=== PATIENT | female | born 1990 | race Caucasian/White ===

== ENCOUNTER 2018-01-26 08:31 | Outpatient (CLI) | payer MEDICAID ==
[~2018-01-26] VITALS: Ht 167.6 cm; Wt 91.2 kg
[~2018-01-26 08:31] MED LIST: ACE500 PO; ALB0.5 INH; ALBU8.5H IH; ALBU8.5H12 IH; AMIT-104 PO; AMOX-362; BACDS PO; CEP500 PO; CEPH500C24 PO; CHLO1CAP45 PO; CIT500PT PO; CITA-156 PO; CYCL10TA29 PO; DICY-42 PO; DOC100 PO; DOCU100T13 PO; DOXY-179 PO; FLU10 PO; GUAN1TAB PO; HYDR-3166 PO; HYDR-4309 PO; KET10 PO; LAM100 PO; LAMO100T56 PO; LIT150 PO; LOR5 PO; LOR5/325 PO; LORA-1455 PO; MEC125 PO; MED150I IM; METO-733 PO; NAP250 PO; NAPR500T75 PO; NITR-105 PO; OND4 PO; ONDA-2 PO; ONDA4TAB PO; ONDA4TAB9 PO; OXCA150T45 PO; PAN40 PO; PANT40TA65 PO; PER PO; PRED20TA6 PO; PRO25 PO; PROC-5 PO; PROC25SU3; PROM-110; PROM-110 PO; PROM12.556 PO; PROM25SU9 RC; RANI150C14 PO; RISP0.2563; RISP0.2563 PO; SUCR1TAB PO; TRA50 PO; TRAM-420 PO; TRAZ-133 PO; [UNRECOGNIZED DRUG - CODE] PO; [UNRECOGNIZED DRUG - CODE] PO
[2018-01-26 09:00] VITALS: BP 121/76; BMI 32.4
[2018-01-26 09:50] LABS: PLATELET COUNT, AUTOMATED 214 K/uL (150-450)
[2018-01-26] MEDS ORDERED: PREN-127 PO (10:03)
[2018-01-26] MEDS ORDERED: PANT40SU3 PO (10:03)
[2018-01-26] MEDS ORDERED: FOLI0.4T56 PO (10:03)
--- NOTE | 2018-01-26 10:15 | History & Physical ---
History of Present Illness Age of Patient: 27 : 5 Para or TPAL: 1 EDC per LMP: Feb 23, 2018 Estimated Gestational Age: 36 Chief Complaint right back/rib pain History of Present Illness Presents at 36 weeks with c/o pain in upper right back and in ribs. She has a history of having a rib fracture there and it feel similar. Baseline aching with sharp exacerbations with movement or cough. Denies SOB although she does have mild asthma and doesn't take any regular medication for this. She does have a rescue inhaler. Denies fever, chills or GI complaints. Denies actual contractions or obstetrical complaints. She does have a lot of stress due to social issues and the pain is worse with these. She has bipolar and takes Lamictal for this. She also recently started Protonix for reflux. Past Medical, Surgical, Family and Obstetric Histories reviewed. Please see ACOG chart. History Allergies: Coded Allergies: latex (Verified Allergy, Intermediate, RASH, 08/23/17) Med Rec Home Meds Reported Medications Vits W-Ca,Fe,Fa(<1MG) ( VITAMINS) 1 Each Tablet, 1 EACH PO DAILY, TAB 01/26/18 Folic Acid (FOLIC ACID) 0.4 Mg Tablet, 0.4 MG PO DAILY 01/26/18 Pantoprazole Sodium (PROTONIX) 40 Mg Granpkt.dr, 40 MG PO QDAY, PACK 01/26/18 Lamotrigine (LAMICTAL) 100 Mg Tablet, 100 MG PO QHS 06/13/15 Discontinued Scripts Promethazine Hcl (PROMETHAZINE HCL) 25 Mg Supp.rect, 25 MG RC Q8H Y for NAUSEA/ VOMITING, #12 SUPP.RECT You may take oral or suppository medication three times a day. Prov:ORLANDO MCKEON [employer] INSTALLER 08/23/17 Promethazine Hcl (PROMETHAZINE HCL) 25 Mg Tablet, 25 MG PO Q8H Y for NAUSEA/ VOMITING, #12 TAB Prov:OR[place]O MCKEON [facility] 08/23/17 Review of Systems All Systems Reviewed/Normal: Yes, Except as Noted Other as per HPI Exam General Exam Vital Signs Vital Signs Date Time Temp Pulse Resp B/P (MAP) Pulse Ox O2 Delivery O2 Flow Rate FiO2 01/26/18 09:00 97.9 80 15 121/76 (91) 95 Room Air General Apperance: Alert/Awake/No Acute Distress Neuro: No Gross deficits Eyes: Normal Extraocular Movement & Vison ENT: Normal Cardiovascular: Regular Rate and Rhythm Respiratory: No Respiratory Distress, Clear to Auscultation Abdomen: Soft, Non-Tender, Non-Distended, Gravid - Non-Tender Musculoskeletal: Other (right rib pain with palpation and flexion of rib cage) Extremities: No Cyanosis,Clubbing or Edema Integumentary: Skin Intact without Lesions or Rash Psychological: Alert & Oriented X3, Appropriate Mood & Affect Fetus Feeling Movement?: Yes Heart Tone Variabilty: Moderate FHT Accelerations: 15X15 FHT Category: I Medical Decision Making Data Points Result Diagram: 01/26/18 0945 Hematology Test 01/26/18 00:00 01/26/18 09:45 Urine Color Yellow Urine Clarity Slightly-cloudy Urine pH 6.0 pH (4.8-9.5) Urine Specific [place] 1.015 Urine Protein Negative mg/dL (NEGATIVE) Urine Glucose (UA) Negative mg/dL (NEGATIVE) Urine Ketones Negative mg/dL (NEGATIVE) Urine Blood Negative (NEGATIVE) Urine Nitrite Negative (NEGATIVE) Urine Bilirubin Negative (NEGATIVE) Urine Urobilinogen Negative mg/dL (0.2-1.9) Urine Leukocyte Esterase Trace (NEGATIVE) Urine RBC None /HPF (0-2/HPF) Urine WBC 1 /HPF (0-5/HPF) Urine Squamous Epithelial Cells Many /LPF (</=FEW) Urine Bacteria Few /HPF (NONE-FEW) Urine Mucus None /HPF (NONE-FEW) Red Blood Count 4.61 M/uL (4.17-5.56) Mean Corpuscular Volume 89.1 fL (80.0-96.0) Mean Corpuscular Hemoglobin 30.5 pg (26.0-33.0) Mean Corpuscular Hemoglobin Concent 34.2 g/dL (32.0-36.0) Red Cell Distribution Width 13.3 % (11.5-14.5) Mean Platelet Volume 7.7 fL (7.2-11.1) Neutrophils (%) (Auto) 71.5 % (39.4-72.5) Lymphocytes (%) (Auto) 22.2 % (17.6-49.6) Monocytes (%) (Auto) 4.5 % (4.1-12.4) Eosinophils (%) (Auto) 0.6 % (0.4-6.7) Basophils (%) (Auto) 1.2 % (0.3-1.4) Nucleated RBC Relative Count (auto) 0.2 /100WBC Neutrophils # (Auto) 8.5 K/uL (2.0-7.4) Lymphocytes # (Auto) 2.6 K/uL (1.3-3.6) Monocytes # (Auto) 0.5 K/uL (0.3-1.0) Eosinophils # (Auto) 0.1 K/uL (0.0-0.5) Basophils # (Auto) 0.1 K/uL (0.0-0.1) Nucleated RBC Absolute Count (auto) 0.03 K/uL Chemistry Test 01/26/18 00:00 01/26/18 09:45 Urine Color Yellow Urine Clarity Slightly-cloudy Urine pH 6.0 pH (4.8-9.5) Urine Specific [place] 1.015 Urine Protein Negative mg/dL (NEGATIVE) Urine Glucose (UA) Negative mg/dL (NEGATIVE) Urine Ketones Negative mg/dL (NEGATIVE) Urine Blood Negative (NEGATIVE) Urine Nitrite Negative (NEGATIVE) Urine Bilirubin Negative (NEGATIVE) Urine Urobilinogen Negative mg/dL (0.2-1.9) Urine Leukocyte Esterase Trace (NEGATIVE) Urine RBC None /HPF (0-2/HPF) Urine WBC 1 /HPF (0-5/HPF) Urine Squamous Epithelial Cells Many /LPF (</=FEW) Urine Bacteria Few /HPF (NONE-FEW) Urine Mucus None /HPF (NONE-FEW) White Blood Count 11.8 k/uL (4.5-11.0) Red Blood Count 4.61 M/uL (4.17-5.56) Hemoglobin 14.1 g/dL (12.0-16.0) Hematocrit 41.0 % (34.0-47.0) Mean Corpuscular Volume 89.1 fL (80.0-96.0) Mean Corpuscular Hemoglobin 30.5 pg (26.0-33.0) Mean Corpuscular Hemoglobin Concent 34.2 g/dL (32.0-36.0) Red Cell Distribution Width 13.3 % (11.5-14.5) Platelet Count 214 K/uL (150-450) Mean Platelet Volume 7.7 fL (7.2-11.1) Neutrophils (%) (Auto) 71.5 % (39.4-72.5) Lymphocytes (%) (Auto) 22.2 % (17.6-49.6) Monocytes (%) (Auto) 4.5 % (4.1-12.4) Eosinophils (%) (Auto) 0.6 % (0.4-6.7) Basophils (%) (Auto) 1.2 % (0.3-1.4) Nucleated RBC Relative Count (auto) 0.2 /100WBC Neutrophils # (Auto) 8.5 K/uL (2.0-7.4) Lymphocytes # (Auto) 2.6 K/uL (1.3-3.6) Monocytes # (Auto) 0.5 K/uL (0.3-1.0) Eosinophils # (Auto) 0.1 K/uL (0.0-0.5) Basophils # (Auto) 0.1 K/uL (0.0-0.1) Nucleated RBC Absolute Count (auto) 0.03 K/uL Urinalysis Test 01/26/18 00:00 Urine Color Yellow Urine Clarity Slightly-cloudy Urine pH 6.0 pH (4.8-9.5) Urine Specific [place] 1.015 Urine Protein Negative mg/dL (NEGATIVE) Urine Glucose (UA) Negative mg/dL (NEGATIVE) Urine Ketones Negative mg/dL (NEGATIVE) Urine Blood Negative (NEGATIVE) Urine Nitrite Negative (NEGATIVE) Urine Bilirubin Negative (NEGATIVE) Urine Urobilinogen Negative mg/dL (0.2-1.9) Urine Leukocyte Esterase Trace (NEGATIVE) Urine RBC None /HPF (0-2/HPF) Urine WBC 1 /HPF (0-5/HPF) Urine Squamous Epithelial Cells Many /LPF (</=FEW) Urine Bacteria Few /HPF (NONE-FEW) Urine Mucus None /HPF (NONE-FEW) VTE Prophylasis: Adult Deep Vein Thrombosis/Pulmonary: No Pharmacological Contraindicati: Pt at Low Risk for VTE Mechanical Contraindications: Pt at Low Risk for VTE 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 Checking CBC, CMP and urine. If normal, will discharge home with precautions. Should resolve with delivery. (2) , incidental Assessment & Plan: Reassuring tracing and no symptoms of labor. Has appt on Wednesday of next week. GWEN SINGH MD January 26, 2018 10:14
[2018-01-31 04:25] VITALS: Ht 167.6 cm; Wt 91.2 kg
== END 2018-01-26 12:52 | disposition home or self-care (01) ==
LOC: EDSTATUS 08:33 → L&D 08:35 → OB 08:35 → UNDOADMIN 08:35 → EDSTATUS 10:43 → UNDODISIN 12:52 → L&D 12:52
PROVIDERS: ATTEND Obstetrics & Gynecology
DX: O26.893 Other specified pregnancy related conditions, third trimester (principal); Z3A.36 36 weeks gestation of pregnancy
CPT/HCPCS: 36415; 59025; 81001; 85025; G0463; 82040; 82247; 82310; 82374; 82435; 82565; 82947; 84075; 84132; 84155; 84295; 84450; 84460; 84520; 99213

== ENCOUNTER → 2018-01-27 | Outpatient (CLI) | payer MEDICAID ==
[2018-01-26 09:00] VITALS: BMI 32.4
[~2018-01-27] MED LIST changes: +FOLI0.4T56 PO; +PANT40SU3 PO; +PREN-127 PO
--- NOTE | 2018-01-27 14:28 | RADIOLOGY IMAGING REPORT ---
FACILITY: [facility] [place] PATIENT NAME: Lucia Mena : 1990 MR: [id number] V: [id number] EXAM DATE: ORDERING PHYSICIAN: MADHAVI TROTTER TECHNOLOGIST: Location: [facility] [place] Patient: Lucia Mena : 1990 Visit/Account:[id number] Date of Sevice: 01/27/2018 ABD SINGLE ORGAN/QUAD/FOLLOWUP HISTORY: Right upper quadrant pain, elevated liver enzymes COMPARISON: CT abdomen and pelvis February 07, 2016 FINDINGS: Gallbladder: Surgically removed Liver: Liver is normal in size and echogenicity with no demonstration of focal hepatic mass. Appropr iate flow is identified in the portal vein. Common duct: Normal, 2.6 mm diameter. Pancreas: Partially obscured by bowel, visualized aspects unremarkable. Right kidney: Right kidney appears unremarkable measuring 11.5 cm in length Upper abdominal aorta and IVC: Patent. Ascites: None visualized. IMPRESSION: Post surgical changes from a prior cholecystectomy Unremarkable sonographic appearance to the liver Report Dictated By: Linda Hernandez MD at 01/27/2018 2:17 PM Report E-Signed By: Linda Hernandez MD at 01/27/2018 2:20 PM WSN:NANCY
== END ==
LOC: US 11:29
PROVIDERS: ATTEND Obstetrics & Gynecology
DX: Z90.49 Acquired absence of other specified parts of digestive tract (principal)
CPT/HCPCS: 76705

== ENCOUNTER 2018-01-31 03:49 | Inpatient (IN) | payer MEDICAID ==
[~2018-01-31] VITALS: Ht 167.6 cm; Wt 90.7 kg
[2018-01-31] MEDS ORDERED: LR(*) 1000 ML BAG 1,000 ML IV SCH (04:13)
[2018-01-31] MEDS ORDERED: OXYTOCIN 30 UNIT/D5LR 500 ML 500 ML IV PRN (04:13)
[2018-01-31] MEDS ORDERED: FAMOTIDINE(*) 20MG/50ML PREMIX 50 ML IVPB PRN (04:13)
[2018-01-31] MEDS ORDERED: LIDOCAINE 1% LOCAL 300 MG/30ML INJ PRN (04:15)
[2018-01-31] MEDS ORDERED: FLUSH 10 ML SYR IVP PRN (04:15)
[2018-01-31] MEDS ORDERED: fentaNYL CITR 100 MCG/2 ML AMP IVP PRN (04:15)
[2018-01-31] MEDS ORDERED: LIDOCAINE/SOD BICARB 8.4% SYR SC PRN (04:15)
[2018-01-31] MEDS ORDERED: METOCLOPRAMIDE 10 MG/2 ML SDV IVP PRN (04:15)
[2018-01-31] MEDS ORDERED: EPIDURAL KEYS XX PRN (04:20)
[2018-01-31] MEDS ORDERED: LIDO/EPI 2% MPF 1:200,000 20ML EPI PRN (04:20)
[2018-01-31] MEDS ORDERED: FENTANYL/ROPIVACAINE 100 ML BAG EPI PRN (04:20)
[2018-01-31] MEDS ORDERED: ePHEDrine 25 MG/5 ML DISP.SYR IVP PRN (04:20)
[2018-01-31] MEDS ORDERED: BUPIVACAINE 0.25% MPF INJ EPI PRN (04:20)
[2018-01-31] MEDS ORDERED: BUPIVACAINE 0.5% INJ 30ML VIAL EPI PRN (04:20)
[2018-01-31] MEDS ORDERED: LIDOCAINE/PF 2% 200MG/10ML AMP 200 MG/10 ML AMPUL EPI PRN (04:20)
[2018-01-31] MEDS ORDERED: fentaNYL CITR 100 MCG/2 ML AMP IT PRN (04:20)
[2018-01-31 04:25] VITALS: BP 125/67; Ht 167.6 cm; Wt 90.7 kg
[2018-01-31 04:34] LABS: PLATELET COUNT, AUTOMATED 204 K/uL (150-450)
[2018-01-31] MEDS ORDERED: TRAM-420 PO (05:14)
[2018-01-31] MEDS ORDERED: ONDANSETRON 4 MG/2 ML VIAL IVP PRN (05:55)
[2018-01-31] MEDS ORDERED: ACETAMINOPHEN 500 MG TAB PO PRN (05:55)
[2018-01-31] MEDS ORDERED: CALCIUM CARBONATE 500 MG CHEW PO PRN (05:55)
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
--- NOTE | 2018-01-31 10:05 | Anesthesia OB Pre-Anes Eval ---
History of Present Illness Anesthesia Start Date: January 31, 2018 Anesthesia Start Time: 07:55 OB Anesthesia Diagnosis: spontaneous ROM Complications: None known EDC: Feb 23, 2018 : 5 Para: 1 Vital Signs: Vital Signs Date Time Temp Pulse Resp B/P (MAP) Pulse Ox O2 Delivery O2 Flow Rate FiO2 01/31/18 04:25 97.7 115 20 125/67 (86) 97 Room Air Pain Ratin Heart Tones: WNL Result Diagram: 01/31/18 0428 Height (Inches): 66.00 Weight (Pounds): 200 BMI Calculated: 32.28 Past Medical History Medical History: no pertinent history Surgical History: cholecystectomy, other (Laparoscopy, D&Cs) Previous Anesthesia: general, epidural Attended Childbirth Classes?: No Home Meds Reported Medications Tramadol Hcl (TRAMADOL HCL) 50 Mg Tablet, 50-100 MG PO Q4-6H, TAB 01/31/18 Vits W-Ca,Fe,Fa(<1MG) ( VITAMINS) 1 Each Tablet, 1 EACH PO DAILY, TAB 01/26/18 Folic Acid (FOLIC ACID) 0.4 Mg Tablet, 0.4 MG PO DAILY 01/26/18 Pantoprazole Sodium (PROTONIX) 40 Mg Granpkt.dr, 40 MG PO QDAY, PACK 01/26/18 Lamotrigine (LAMICTAL) 100 Mg Tablet, 100 MG PO QHS 06/13/15 Discontinued Scripts Promethazine Hcl (PROMETHAZINE HCL) 25 Mg Supp.rect, 25 MG RC Q8H Y for NAUSEA/ VOMITING, #12 SUPP.RECT You may take oral or suppository medication three times a day. Prov:ORLANDO MCKEON [facility] 08/23/17 Promethazine Hcl (PROMETHAZINE HCL) 25 Mg Tablet, 25 MG PO Q8H Y for NAUSEA/ VOMITING, #12 TAB Prov:ORLANDO MCKEON [facility] 08/23/17 Allergies: Coded Allergies: latex (Verified Allergy, Intermediate, RASH, 08/23/17) Anesthesia OB ROS Neurological: migraines/headaches (history) ENT: Denies Tooth caps, Denies Loose teeth, Denies Chipped teeth, Denies Dentures, Denies Bridges, Denies Retainers, Denies Veneers, Denies Implants, Denies Tongue ring Pulmonary: asthma (used inahler 2-3 months ago.), No smoker (pks/day/yrs), No other Airway Class: ll Cardiovascular ROS: No edema, No arrhythmia GI ROS: clear liquids Last Solids Date: January 30, 2018 Last Solids Time: 18:00 ROS: No Herpes, No STD(s), No Liver Disease, No Renal Disease Endocrine ROS: No diabetes, No gestational diabetes, No thyroid disorder Musculoskeletal ROS: No low back pain, No low back injury, No scoliosis ASA Classification: 2 Assessment and Plan Anesthesia Plan: CSE Assessment Past Medical, Surgical, Family and Obstetric Histories reviewed. Please see ACOG chart. Epidural anesthesia risks, complications and benefits explained to patient's satisfaction for labor and vaginal delivery and/or section. General anesthesia risks and benefits explained to patient's satisfaction. Pt. states she had an epidural with last delivery and it "worked well". Questions invited, none asked. BRITTANI CELESTIN CRNA January 31, 2018 10:05
--- NOTE | 2018-01-31 10:18 | Procedure Note ---
Anesthetic Placement Note Anesthesia Plan: CSE Permit for Anesthesia Signed: Yes Anesthesia Technique: Patient Sitting Anesthesia Prep: Chlorhexidine Local Anesthetic: 1% Lidocaine, 25 Gauge Needle Amount Local - cc's: 2 Anesthesia Needle: 17g Touhy/Schliff Anesthesia Attempts: 1 Loss of Resistance: Air Depth of ANKITA (cm): 6 Epidural Needle Placement: No CSF, No Blood, No Parasthesia Intrathecal Needle: 27 Gauge Pencan Cerebral Spinal Fluid: Yes, Clear Catheter Insertion (cm): 8 Catheter Type: [place] - Spring Wound Epidural Dressing: Tegaderm, Tape, Adhesive [place] Anesthesia Tray: Lot Number ([id number]), Expiration Date (2018-07-13), Reference Number ([id number]) Anesthesia Medications: Intrathecal Dose: mcg Fentanyl (15), mg Marcaine MPF (1.75 mg), Time (0817) Epidural Test Dose: 1.5 Lido/Epi (1:200,000), Dose - mL (3), Time (0836), Negative Epidural Loading Dose: 0.2% Ropivicaine, With Fentanyl 2mcg/ml, Dose - ml (5), Time (0836) Epidural Infusion: 0.2% Ropivicaine, With Fentanyl 2mcg/ml, Start Time: (0837) Epidural Pump Setting: Bolus Dose - mL (5), Lockout - Minutes (20), Maintenance Rate - mL/hr (6), Maximum per Hour - mL (21) Complications: None Comment: Difficult to identify when pt. was having contractions before epidural. Upon entering room, pt. was sitting up in bed, texting on her phone. After epidural , vital signs are stable and patient appears comfortable. BRITTANI CELESTIN CRNA January 31, 2018 10:18
--- NOTE | 2018-01-31 10:22 | Anesthesia Progress Note ---
Progress/Maintenance Anesthesia Note Date: January 31, 2018 Anesthesia Note Time: 10:20 Pain Intensity: 1 Pump: On Pump Rate (ML/HR): 6 Sensory Level: T-12 Motor Level: Bending Knees-Bilateral Dilatation: 3 Position: Right, Tilt Assessment and Plan Assessment Remains comfortable, states she does feel contractions. Encouraged to rest. BRITTANI CELESTIN CRNA January 31, 2018 10:22
[2018-01-31] MEDS ORDERED: LANOLIN OINT 7 GM TUBE TP PRN (11:40)
[2018-01-31] MEDS ORDERED: MAGNESIUM HYDROXIDE* 30ML UDCP PO PRN (11:40)
[2018-01-31] MEDS ORDERED: GLYCERIN/WITCH HAZEL LEAF 1 PK TP PRN (11:40)
[2018-01-31] MEDS ORDERED: ACETAMINOPHEN 325 MG TAB PO PRN (11:40)
[2018-01-31] MEDS ORDERED: HYDROCORTISONE 2.5% CR 30GM TB PR PRN (11:40)
[2018-01-31] MEDS ORDERED: BENZOCAINE 20% 60 ML BTL TP PRN (11:40)
--- NOTE | 2018-01-31 11:48 | Anesthesia Progress Note ---
Progress/Maintenance Anesthesia Note Date: January 31, 2018 Anesthesia Note Time: 11:40 Pain Intensity: 0 Pump: Off Sensory Level: T-12 Motor Level: Bending Knees-Bilateral Dilatation: 10 Position: Semi-Fowlers Drug Bolus: 0.5% Marcaine (3 ml), Other (Fentenyl 85 mcgs) Assessment and Plan Assessment Manual bolus given just prior to complete and pushing. Excellent tolerance of delivery and repair work. Empty syringe attached to epidural catheter and RN agrees to remove with ambulation. Patient instructed the first ambulation is to be with help of nursing staff. Instructed to preform deep knee bends at bedside before walking. Anesthesia Stop Day: January 31, 2018 Anesthesia Stop Time: 11:45 BRITTANI CELESTIN CRNA January 31, 2018 11:48
[2018-01-31] MEDS ORDERED: IBUPROFEN 800 MG TAB PO SCH (14:00)
--- NOTE | 2018-01-31 14:23 | OB Delivery Note ---
Delivery Note Vaginal Delivery Type: Spont. Vaginal Delivery Delivery Date: January 31, 2018 Delivery Time: 11:28 Estimated Gestational Age(wks): 36.5 Length of Labor Stage I (hrs): 8 Length of Labor Stage II (hrs): 0.25 Labor Stage III (minutes): 5 Delivery Anesthesia: Epidural Infant Sex: Male (6#2.3oz) Weight (gms): 2792 [place] Apgars: 1 Minute (8), 5 Minute (9) Repair Needed: Labial (left) Estimated Blood Loss: 400 Weighmaster Lead in Attendence: LOUIS Frederick DO January 31, 2018 14:23
[2018-01-31] MEDS: IBUPROFEN 800 MG TAB PO SCH (18:34)
[2018-01-31 19:18] VITALS: BP 118/61
[2018-01-31] MEDS ORDERED: PANTOPRAZOLE SOD 40 MG TABEC PO SCH (21:00)
[2018-01-31] MEDS ORDERED: lamoTRIgine 100 MG TAB PO SCH (21:00)
[2018-01-31] MEDS: DOCUSATE CALCIUM 240 MG CAP PO SCH (21:03)
[2018-01-31 23:10] VITALS: BP 115/65
[2018-02-01 02:09] VITALS: BP 115/57
[2018-02-01] MEDS: IBUPROFEN 800 MG TAB PO SCH ×3 (02:10→17:44)
[2018-02-01] MEDS: APAP/HYDROCODONE 325/5 TAB PO PRN ×2 (07:28→13:53)
[2018-02-01 07:41] VITALS: BP 113/69
--- NOTE | 2018-02-01 08:44 | OB/GYN Progress Note ---
OB Subjective Progress Notes Subjective Doing well. Pain controlled and ambulating well. Voiding without difficulty. Bleeding light. GI: NEG Nausea : Voiding Well Pain: Mild OB Objective Physical Exam Vital Signs Date Time Temp Pulse Resp B/P (MAP) Pulse Ox O2 Delivery O2 Flow Rate FiO2 02/01/18 07:41 97.6 59 16 113/69 (84) 02/01/18 02:09 Room Air 01/31/18 04:25 97 General Appearance: Alert/Awake/No Acute Distress Neurological: No Gross deficits Eyes: Normal Extraocular Movement & Vison Cardiovascular: Normal Rhythm & Peripheral Pulses, Regular Rate and Rhythm Respiratory: No Respiratory Distress, Clear to Auscultation Abdomen: Soft, Non-Tender, Non-Distended, Fundus Firm, Non-Tender Integumentary: Skin Intact without Lesions or Rash Psychological: Alert & Oriented X3, Appropriate Mood & Affect Result Diagram: 02/01/18 0600 Assessment and Plan 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 Will continue her care routine. GWEN SINGH MD February 01, 2018 08:44
[2018-02-01] MEDS ORDERED: IBUP800T37 PO (08:50)
[2018-02-01] MEDS ORDERED: MEASLES,MUMP,RUBELLA VAC 0.5ML SUBQ ONE (09:00)
[2018-02-01] MEDS ORDERED: DIPHTH/TETANUS/ACEL. PERTUSSIS IM ONLY ONE (09:00)
[2018-02-01] MEDS ORDERED: INFLUENZA VIRUS VAC 0.5 ML SYR IM ONLY ONE (09:00)
[2018-02-01] MEDS: DOCUSATE CALCIUM 240 MG CAP PO SCH (09:43)
[2018-02-01 12:04] VITALS: BP 115/68
--- NOTE | 2018-02-01 15:07 | DELIVERY NOTE ---
DELIVERY DATE: January 31, 2018 SURGEON: Tha Nur DO ANESTHESIA: Epidural. PREOPERATIVE DIAGNOSES 1. A 27-year-old 5, para 1-0-3-1, at 36-5/7 weeks' gestation by ultrasound, not consistent with last menstrual period. 2. premature rupture of membranes. 3. Bipolar. POSTOPERATIVE DIAGNOSES 1. A 27-year-old 5, para 1-0-3-1, at 36-5/7 weeks' gestation by ultrasound, not consistent with last menstrual period. 2. premature rupture of membranes. 3. Bipolar. 4. Delivered. PROCEDURE Spontaneous vaginal delivery with repair of left labial laceration. FINDINGS Live-born male infant at 11:28 on January 31, 2018 with Apgars of 8 and 9, weighing 2792 g, 6 pounds 2.3 ounces, three-vessel cord, intact placenta over a left labial laceration. PATHOLOGY None. ESTIMATED BLOOD LOSS 400 mL COMPLICATIONS None known. CONDITION Stable times two. Mother and infant remained in the LDRP. COUNTS Correct times two for all needles, laps, sponges, and instruments. LABOR SUMMARY Patient is a 27-year-old 5, para 1-0-3-1, at 36-5/7 weeks' gestation who presented to Labor and Delivery at approximately 4:00 this morning with the complaint of loss of fluid. She was noted to be grossly ruptured with a positive AmniSure. She was 3 cm upon initial presentation, leland very irregularly. It was decided to see if those contractions would cause any cervical change. Patient was not started on any oxytocin until approximately 9: 30 in the morning. She slowly had her oxytocin increased until she was at an adequate pattern, quickly changed from 3 cm to anterior lip, began to feel increased pressure, and was noted to be complete. At this time, the delivery team was called and assembled. DELIVERY SUMMARY Patient was placed in the dorsal lithotomy position. She was prepped and draped in the usual sterile manner. Upon maternal pushing, the 's head delivered in a controlled manner, followed by the anterior shoulder with gentle downward motion, posterior shoulder with gentle upward motion. The remainder of the infant's body delivered spontaneously. Mouth and nose were bulb suctioned. The cord was cut after 2-1/2 minutes post delivery. The infant remained on the maternal abdomen where he was vigorously cleaned and dried. Cord blood gas was obtained. Placenta delivered spontaneously with gentle cord traction. Oxytocin was infused to help with uterine tone. Uterus massage continued until firm. Upon inspection of the perineum, vagina, cervix, and labia, it was noted there was a left labia laceration. This was repaired in a running manner with a 4-0 Vicryl. With the laceration repaired, the patient was cleaned, and the patient was allowed to continue to platt with her baby. KD
[2018-02-01 16:09] VITALS: BP 118/77
[2018-02-01] MEDS ORDERED: PANTOPRAZOLE SOD 40 MG TABEC PO SCH (21:00)
--- NOTE | 2018-02-02 09:26 | Anesthesia Post Eval Note ---
Anesthesia Post Eval Note Vital Signs Date Time Temp Pulse Resp B/P (MAP) Pulse Ox O2 Delivery O2 Flow Rate FiO2 02/01/18 16:09 97.8 55 20 118/77 (91) 02/01/18 02:09 Room Air 01/31/18 04:25 97 Pt able to participate in Eval: Yes Cardiovascular Status: Satisfactory Respiratory Status: Satisfactory Pain Managment: Satisfactory PO Nausea/Vomiting: Satisfactory Temperature Management: Satisfactory Mental Status: Satisfactory, Alert, Oriented X3 Post-Op Hydration Status: Satisfactory, Tolerating PO Well, Voiding w/o Difficulty Anesthesia Type: CSE Anesthesia Tolerance: Tolerated procedure well without apparent anesthetic complications. LP site clear, no redness or edema. Denies headache or any residual paresthesia. Vital Signs Stable, Patient comfortable and condition stable. BRITTANI CELESTIN CRNA February 02, 2018 09:26
== END 2018-02-01 18:30 | disposition home or self-care (01) | DRG 775 ==
LOC: OB 03:49
PROVIDERS: ADMIT Obstetrics & Gynecology; ATTEND Obstetrics & Gynecology
PROC: 10E0XZZ Delivery of Products of Conception, External Approach (ICD-10-PCS; principal; 2018-01-31)
PROC: 0HQ9XZZ Repair Perineum Skin, External Approach (ICD-10-PCS; 2018-01-31)
DX: O60.14X0 Preterm labor third trimester with preterm delivery third trimester, not applicable or unspecified (principal); O99.344 Other mental disorders complicating childbirth; F31.9 Bipolar disorder, unspecified; O70.0 First degree perineal laceration during delivery; J45.909 Unspecified asthma, uncomplicated; O99.52 Diseases of the respiratory system complicating childbirth; Z62.810 Personal history of physical and sexual abuse in childhood; Z37.0 Single live birth; Z3A.36 36 weeks gestation of pregnancy; Z91.040 Latex allergy status; Z90.49 Acquired absence of other specified parts of digestive tract
CPT/HCPCS: 36415; 85025; 85027; 86850; 86900; 86901; J3010; J7120; S0020

== ENCOUNTER 2018-04-23 09:24 | Emergency (ER) | payer MEDICAID ==
[2018-01-31 04:25] VITALS: Wt 81.6 kg
[~2018-04-23 09:24] MED LIST changes: +IBUP800T37 PO
[2018-04-23] MEDS ORDERED: FLUO-201 PO (09:37)
[2018-04-23] MEDS ORDERED: ALB6.7R INH (09:37)
[2018-04-23] MEDS ORDERED: ALBUTEROL/IPRATROPIUM 3 ML NEB NEB ONE ×2 (09:40→10:30)
--- NOTE | 2018-04-23 09:49 | ER Report ---
History and Physical Time Seen By MD: 09:45 Hx. of Stated Complaint: WENT [place]ACATION TO [place]. NOW FEELS SOB, CONGESTED, CHEST FEELS HEAVY, POSSIBLE TOOTH INFECTION ON TOP OF THAT. HPI/ROS CHIEF COMPLAINT: Shortness of breath chest congestion HISTORY OF PRESENT ILLNESS: Patient is a 27-year-old female who recently returned from [place] from a vacation. Since returning she has multiple complaints she is complaining of some tightness in her chest similar to prior asthma attacks also congestion sinus pressure mucus and a right upper maxillary molar tooth pain. Patient is 2 months and is breast-feeding. She denies any redness or erythema to the breast she denies any pain with breast- feeding she denies any purulent discharge from the breast. She denies any fevers or chills. She states she received mild relief with her inhaler. She denies any leg pain. No prior history of coagulopathy or blood clot. No known cardiac history. Patient denies any other significant medical problems. REVIEW OF SYSTEMS: Constitutional: No fever, no chills. Eyes: No discharge. ENT: No sore throat. Sinus congestion dental pain Cardiovascular: Chest congestion no palpitations Respiratory: Dry cough no pleuritic chest pain Gastrointestinal: No abdominal pain, no vomiting. Genitourinary: No hematuria. Musculoskeletal: No back pain. Skin: No rashes. Neurological: No headache. Allergies: Coded Allergies: latex (Verified Allergy, Intermediate, RASH, 04/23/18) Home Meds Active Scripts Oxycodone Hcl/Acetaminophen (PERCOCET 5-325 MG TABLET) 1 Each Tablet, 1 EACH PO Q4-6H for PAIN, #12 TAB 0 Refills Prov:KIM LITTLE MD 04/23/18 Amoxicillin/Pot Clav 875-125 Mg Tab (AUGMENTIN 875-125 TABLET) 1 Each Tablet, 1 TAB PO Q12H for 10 Days, #20 TAB 0 Refills Prov:KIM LITTLE MD 04/23/18 Reported Medications Albuterol Sulfate (PROVENTIL HFA) 6.7 Gm Inh, 1-2 PUFF INH 3-4XD, INH 04/23/18 Fluoxetine Hcl (PROZAC) 10 Mg Capsule, 10 MG PO QDAY, CAPSULE 04/23/18 Vits W-Ca,Fe,Fa(<1MG) ( VITAMINS) 1 Each Tablet, 1 EACH PO DAILY, TAB 01/26/18 Pantoprazole Sodium (PROTONIX) 40 Mg Granpkt.dr, 40 MG PO QDAY, PACK 01/26/18 Lamotrigine (LAMICTAL) 100 Mg Tablet, 150 MG PO QHS 06/13/15 Discontinued Reported Medications Tramadol Hcl (TRAMADOL HCL) 50 Mg Tablet, 50-100 MG PO Q4-6H, TAB 01/31/18 Folic Acid (FOLIC ACID) 0.4 Mg Tablet, 0.4 MG PO DAILY 01/26/18 Discontinued Scripts Ibuprofen (IBUPROFEN) 800 Mg Tablet, 1 TAB PO Q8H Y for PAIN, #30 TAB 0 Refills Take with food for pain no closer than every 8 hours. Prov:GWEN SINGH MD 02/01/18 Past Medical/Surgical History Medical history for gastroesophageal reflux disease and asthma. Hx Smoking: Yes Smoking Status: Former Smoker Exposure to Second Hand Smoke?: No Hx Substance Use Disorder: No Hx Alcohol Use: Yes Constitutional Vital Sign - Last 24 Hours 04/23/18 04/23/18 04/23/18 04/23/18 09:29 10:08 10:29 10:49 Temp 98.1 Pulse 95 76 70 77 Resp 16 14 14 14 B/P (MAP) 118/90 175/83 (113) Pulse Ox 96 92 O2 Delivery Room Air Room Air Physical Exam General/Constitutional: Patient is awake, alert, nontoxic and in no acute respiratory distress. Head: Normocephalic and atraumatic. Eyes: Conjunctival clear, Pupils are equal and reactive to light.. Sclera are clear and anicteric. Ears:External canals are clear. Tympanic membranes are clear with normal landmarks and light reflex. Nares: No rhinorrhea or bleeding. Turbinates are pink and moist. Oropharyngeal: Mucous membranes are moist. There is no pharyngeal erythema or exudate. There are no palatal petechiae. Uvula is midline and symmetrical. No dental abscess noted Neck: Supple, no adenopathy. Cardiovascular: Heart is regular rate and rhythm without audible murmurs, rubs or gallops. Pulmonary: Lungs are clear to auscultation bilaterally. There are no wheezes, rales, or rhonchi. Chest rise is symmetrical Abdomen: Soft, nontender, no guarding or peritoneal signs. Extremities: No gross deformities, No peripheral cyanosis. Able to move all 4 extremities. Neuro: Alert and oriented X3, Skin: No rashes, skin is warm dry and well perfused. Medical Decision Making EKG/Imaging EKG Interpretation EKG shows normal sinus rhythm with a ventricular rate of [address] segment changes or abnormalities. Monitor Interpretation: Normal Sinus Rhythm Imaging [facility] PATIENT NAME: Lucia Mena : 1990 MR: [id number] V: [id number] EXAM DATE: ORDERING PHYSICIAN: KIM LITTLE TECHNOLOGIST: Location: [facility] Patient: Lucia eMna : 1990 Visit/Account:[id number] Date of Sevice: 04/23/2018 EXAMINATION: Chest radiographs 2 views HISTORY: Respiratory distress. COMPARISON: 06/19/2017. FINDINGS: PA and lateral views of the chest are submitted. Lines/tubes: None. Lungs/pleura: No focal consolidation or pleural effusion. Heart: Negative. Mediastinum: Negative. Bony structures/body wall: Negative. IMPRESSION: No radiographic evidence of acute cardiopulmonary disease. Report Dictated By: Jacey Kwan MD at 04/23/2018 9:59 AM Report E-Signed By: Jacey Kwan MD at 04/23/2018 10:01 AM WSN:[id number] ED Course/Re-evaluation ED Course 04/23/2018 9:48:32 am plan at this time will be EKG chest x-ray DuoNeb breathing treatment. Suspect reactive airways disease as the cause of the congestion and tightness. The patient with suspected dental caries no obvious sign of abscess that needs drainage. 04/23/2018 10:28:38 am patient improved somewhat with initial breathing treatment will repeat also give dose of Afrin. We'll discharge the patient on Augmentin have her continue albuterol inhaler also prescribed some short-term pain medicine for her dentalgia. Decision to Disposition Date: Apr 23, 2018 Decision to Disposition Time: 11:11 Depart Departure Latest Vital Signs Vital Signs Date Time Temp Pulse Resp B/P (MAP) Pulse Ox O2 Delivery O2 Flow Rate FiO2 04/23/18 10:49 77 14 04/23/18 10:29 175/83 (113) 92 Room Air 04/23/18 09:29 98.1 Impression: Primary Impression: Upper respiratory infection Additional Impression: Dentalgia Condition: Improved Disposition: HOME OR SELF-CARE New Scripts Oxycodone Hcl/Acetaminophen (PERCOCET 5-325 MG TABLET) 1 Each Tablet 1 EACH PO Q4-6H for PAIN, #12 TAB 0 Refills Prov: KIM LITTLE MD 04/23/18 Amoxicillin/Pot Clav 875-125 Mg Tab (AUGMENTIN 875-125 TABLET) 1 Each Tablet 1 TAB PO Q12H for 10 Days, #20 TAB 0 Refills Prov: KIM LITTLE MD 04/23/18 Patient Instructions: Dental Caries (DC), Upper Respiratory Infection (ED) Additional Instructions: Take all your medications as prescribed. It is recommended to follow-up with a dentist for evaluation of your tooth pain. Problem Qualifiers Primary Impression: Upper respiratory infection URI type: unspecified viral URI Qualified Codes: J06.9 - Acute upper respiratory infection, unspecified KIM LITTLE MD Apr 23, 2018 09:49
--- NOTE | 2018-04-23 10:05 | RADIOLOGY IMAGING REPORT ---
FACILITY: [facility] [place] PATIENT NAME: Lucia Mena : 1990 MR: [id number] V: [id number] EXAM DATE: ORDERING PHYSICIAN: KIM LITTLE TECHNOLOGIST: Location: [facility] Patient: Lucia Mena : 1990 Visit/Account:[id number] Date of Sevice: 04/23/2018 EXAMINATION: Chest radiographs 2 views HISTORY: Respiratory distress. COMPARISON: 06/19/2017. FINDINGS: PA and lateral views of the chest are submitted. Lines/tubes: None. Lungs/pleura: No focal consolidation or pleural effusion. Heart: Negative. Mediastinum: Negative. Bony structures/body wall: Negative. IMPRESSION: No radiographic evidence of acute cardiopulmonary disease. Report Dictated By: Jacey Kwan MD at 04/23/2018 9:59 AM Report E-Signed By: Jacey Kwan MD at 04/23/2018 10:01 AM WSN:[id number]
[2018-04-23 10:29] VITALS: BP 175/83
[2018-04-23] MEDS ORDERED: OXYMETAZOLINE SPRAY 15 ML BTL ENA SCH (10:30)
[2018-04-23] MEDS ORDERED: OXYC-865 PO (10:31)
[2018-04-23] MEDS ORDERED: AMOX-559 PO (10:31)
--- NOTE | 2018-04-23 10:44 | EKG ---
FACILITY: [facility] [place] PATIENT NAME: ANDRÉS PRINCE : [id number] MR: [id number] V: [id number] EXAM DATE: ORDERING PHYSICIAN: KIM LITTLE TECHNOLOGIST: NATHALIE Test Reason : SOB, CHEST TIGHTNESS Blood Pressure : / mmHG Vent. Rate : 067 BPM Atrial Rate : 067 BPM P-R Int : 136 ms QRS Dur : 080 ms QT Int : 384 ms P-R-T Axes : 028 071 056 degrees QTc Int : 405 ms Normal sinus rhythm Normal ECG When compared with ECG of 25-JUL-2013 14:36, Vent. rate has decreased BY 46 BPM Confirmed by Rafa Guzman ([id number]) on 04/23/2018 6:29:12 PM Referred By: Confirmed By:Rafa Craft
== END 2018-04-23 11:05 | disposition home or self-care (01) ==
LOC: ER 09:28
DX: J06.9 Acute upper respiratory infection, unspecified (principal); K08.89 Other specified disorders of teeth and supporting structures; K21.9 Gastro-esophageal reflux disease without esophagitis; J45.909 Unspecified asthma, uncomplicated; Z87.891 Personal history of nicotine dependence; Z79.899 Other long term (current) drug therapy
CPT/HCPCS: 71046; 93005; 94640; 99284; J7620

== ENCOUNTER 2018-05-11 01:38 | Day surgery (SDC) | payer MEDICAID ==
[2018-01-31 04:25] VITALS: Ht 167.6 cm; Wt 80.3 kg
[~2018-05-11] VITALS: Ht 167.6 cm; Wt 80.3 kg
[~2018-05-11 01:38] MED LIST changes: +ALB6.7R INH; +AMOX-559 PO; +FLUO-201 PO; +OXYC-865 PO
[2018-05-11] MEDS ORDERED: PROPOFOL EMUL(*) 10MG/ML 20 ML 40 ML ONE (08:16)
[2018-05-11] MEDS ORDERED: LIDOCAINE MPF 1% 5 ML VIAL ONE (08:16)
[2018-05-11] MEDS ORDERED: LIDOCAINE/SOD BICARB 8.4% SYR ID ONE (10:45)
[2018-05-11] MEDS ORDERED: NORMOSOL R SOLN(*) 1000 ML BAG 1,000 ML IV PRN (10:45)
[2018-05-11 11:00] VITALS: BP 97/63
[2018-05-11] MEDS ORDERED: PROPOFOL EMUL(*) 10MG/ML 20 ML 20 ML ONE (12:51)
[2018-05-11 13:02] VITALS: BP 101/49
--- NOTE | 2018-05-11 13:07 | Short(Outpt) Discharge Summary ---
Discharge Summary Reason for Hosp/Final Diag: (1) History of colon polyps Status: Chronic Hospital Course & Plan: Colonoscopy completed without problems; normal. Departure Discharge to: Home, Self Care Discharge Instructions Home Meds Reported Medications Albuterol Sulfate (PROVENTIL HFA) 6.7 Gm Inh, 1-2 PUFF INH 3-4XD, INH 04/23/18 Fluoxetine Hcl (PROZAC) 10 Mg Capsule, 10 MG PO QDAY, CAPSULE 04/23/18 Vits W-Ca,Fe,Fa(<1MG) ( VITAMINS) 1 Each Tablet, 1 EACH PO DAILY, TAB 01/26/18 Pantoprazole Sodium (PROTONIX) 40 Mg Granpkt.dr, 40 MG PO QDAY, PACK 01/26/18 Lamotrigine (LAMICTAL) 100 Mg Tablet, 150 MG PO QHS 06/13/15 Diet: Regular Activity: As Tolerated Special Instructions: Your colonoscopy was completed without any problems and your prep was excellent (Good Job!!). I didn't find any polyps, cancers, inflammation, endometriosis, or other abnormalities; it was completely normal. I recommend that you have another colonoscopy in 5 years due to your history of a colon polyp. Copies to: ALEXANDREA LÓPEZ PA-C ; MADHAVI STEWARD MD May 11, 2018 13:07
[2018-05-11 13:17] VITALS: BP 99/60
[2018-05-11 13:43] VITALS: BP 109/68
[2018-05-11 13:46] VITALS: BP 109/80
== END 2018-05-11 14:30 | disposition home or self-care (01) ==
LOC: OR 01:38
PROVIDERS: ATTEND Surgery
DX: Z12.11 Encounter for screening for malignant neoplasm of colon (principal); K21.9 Gastro-esophageal reflux disease without esophagitis; F32.9 Major depressive disorder, single episode, unspecified; J45.909 Unspecified asthma, uncomplicated; Z86.010 Personal history of colon polyps
CPT/HCPCS: 00812; 45378; 81025; J2001; J2704

== ENCOUNTER 2018-06-03 09:21 | Emergency (ER) | payer MEDICAID ==
[2018-01-31 04:25] VITALS: Wt 83.0 kg
[2018-06-03] MEDS ORDERED: IBUPROFEN 600 MG TAB PO ONE (09:45)
[2018-06-03] MEDS ORDERED: ACETAMINOPHEN 500 MG TAB PO ONE (09:45)
--- NOTE | 2018-06-03 09:56 | ER Report ---
History and Physical Time Seen By MD: 09:40 Hx. of Stated Complaint: LEFT TOE PAIN HPI/ROS CHIEF COMPLAINT: left foot injury HISTORY OF PRESENT ILLNESS: Approximately one hour prior to arrival patient struck left foot against a table while chasing a child. Patient notes pain in the left great toe and throughout second through fourth toes that radiates to mid foot. Patient is able to tolerate weight but states that the pain shoots from private rest to 9 or 10 when bearing weight. Patient denies other injury including ankle, knee pain and injury or head injury. Patient has not taken any medication, is breast-feeding but also formula feeds. Patient drove herself here. Patient denies other medical problems or allergies. REVIEW OF SYSTEMS: Respiratory: no respiratory distress Cardiovascular: no chest pain Gastrointestinal: no vomiting Musculoskeletal: no other injury than above Allergies: Coded Allergies: latex (Verified Allergy, Intermediate, RASH, 06/03/18) adhesive (Verified Allergy, Mild, RASH, 06/03/18) Home Meds Reported Medications Albuterol Sulfate (PROVENTIL HFA) 6.7 Gm Inh, 1-2 PUFF INH 3-4XD, INH 04/23/18 Fluoxetine Hcl (PROZAC) 10 Mg Capsule, 10 MG PO QDAY, CAPSULE 04/23/18 Vits W-Ca,Fe,Fa(<1MG) ( VITAMINS) 1 Each Tablet, 1 EACH PO DAILY, TAB 01/26/18 Pantoprazole Sodium (PROTONIX) 40 Mg Granpkt.dr, 40 MG PO QDAY, PACK 01/26/18 Lamotrigine (LAMICTAL) 100 Mg Tablet, 150 MG PO QHS 06/13/15 Hx Smoking: Yes (1 YEAR OFF AND 1 A DAY) Smoking Status: Former Smoker Exposure to Second Hand Smoke?: No Hx Substance Use Disorder: No Hx Alcohol Use: No Constitutional Vital Sign - Last 24 Hours 06/03/18 06/03/18 06/03/18 06/03/18 09:21 09:25 09:26 09:27 Temp 98.4 Pulse 75 69 Resp 14 B/P (MAP) 132/79 (96) 132/79 126/79 (95) Pulse Ox 94 94 O2 Delivery Room Air Room Air 06/03/18 06/03/18 10:16 10:17 Pulse 69 B/P (MAP) 124/88 (100) Pulse Ox 95 O2 Delivery Room Air Physical Exam General Appearance: The patient is alert, has no immediate need for airway protection and no current signs of toxicity. Eyes: Pupils equal and round no injection. Respiratory: Chest is non tender, lungs are clear to auscultation. Cardiac: regular rate and rhythm Musculoskeletal: left great toes; nl sensation, no edema; ttp throughout great toe at ip joint, mtp joint and base of 1st MT without clear deformity. Pt unwilling to/unable to flex/extend. 2nd-4th toes l foot mild ttp without deformity; full range of motion. DP pulse nl. No ankle/knee ttp. No laceration Skin: No rashes or lesions. DIFFERENTIAL DIAGNOSIS: After history and physical exam differential diagnosis was considered for fracture/dislocation/tendon/ligament injury Medical Decision Making ED Course/Re-evaluation ED Course X-ray shows evidence of comminuted but nondisplaced distal phalanx fracture of the left great toe. Pain controlled in the murmurs Parman. Patient placed in walking boot and tolerates this well. Will follow-up with orthopedics in one week for reevaluation. Pt given pain medication and understands not to breast feed while taking lortab. Understands SRp's. Decision to Disposition Date: Jun 03, 2018 Decision to Disposition Time: 15:30 Depart Departure Latest Vital Signs Vital Signs Date Time Temp Pulse Resp B/P (MAP) Pulse Ox O2 Delivery O2 Flow Rate FiO2 06/03/18 10:17 124/88 (100) 06/03/18 10:16 69 95 Room Air 06/03/18 09:26 98.4 14 Impression: Primary Impression: Fracture of great toe, left, closed Condition: Improved Disposition: HOME OR SELF-CARE Referrals: ALEXANDREA LÓPEZ PA-C (PCP) VALENTINA CUNHA MD 5 Days Patient Instructions: Toe Fracture (ED) Additional Instructions: As we discussed; keep toe elevated when sitting; ice 20 minutes at a time three times daily; follow up with orthopedics in 1 week for re-evaluation. Return for uncontrolled pain or any concerns. Problem Qualifiers Primary Impression: Fracture of great toe, left, closed Encounter type: initial encounter Phalanx: distal Fracture alignment: nondisplaced Qualified Codes: S92.425A - Nondisplaced fracture of distal phalanx of left great toe, initial encounter for closed fracture KIM CHAVES MD Jun 03, 2018 09:56
[2018-06-03 10:17] VITALS: BP 124/88
--- NOTE | 2018-06-03 10:39 | RADIOLOGY IMAGING REPORT ---
FACILITY: [facility] [place] PATIENT NAME: Lucia Mena : 1990 MR: [id number] V: [id number] EXAM DATE: ORDERING PHYSICIAN: KIM CHAVES TECHNOLOGIST: Location: [facility] Patient: Lucia Mena : 1990 Visit/Account:[id number] Date of Sevice: 06/03/2018 Exam type: FOOT 3 VIEW LEFT History: Tripped over 20, pain first through fourth toes Comparison: None. Findings: There is a nondisplaced comminuted fracture through the base of the distal phalanx of the left great toe. The fracture extends to the articular surface at the IP joint IMPRESSION: 1. Nondisplaced comminuted intra-articular fracture through the base of the distal phalanx of left g reat toe Report Dictated By: Linda Hernandez MD at 06/03/2018 10:10 AM Report E-Signed By: Linda Hernandez MD at 06/03/2018 10:35 AM WSN:[email or web address]
[2018-06-03] MEDS ORDERED: ACET/HYDROC 5/325MG TH ER ONLY 2 TAB/BOTTLE PO ONE (11:15)
== END 2018-06-03 11:24 | disposition home or self-care (01) ==
LOC: ER 09:29
DX: S92.425A Nondisplaced fracture of distal phalanx of left great toe, initial encounter for closed fracture (principal); W22.8XXA Striking against or struck by other objects, initial encounter
CPT/HCPCS: 99283

== ENCOUNTER 2018-08-01 08:26 | Emergency (ER) | payer MEDICAID ==
[2018-01-31 04:25] VITALS: Wt 81.6 kg
[~2018-08-01 08:26] MED LIST changes: -HYDR-4309 PO; +HYDR-653 PO
[2018-08-01] MEDS ORDERED: IBUPROFEN 600 MG TAB PO ONE (08:50)
[2018-08-01] MEDS ORDERED: ACETAMINOPHEN 325 MG TAB PO ONE (08:50)
--- NOTE | 2018-08-01 09:38 | RADIOLOGY IMAGING REPORT ---
FACILITY: [facility] PATIENT NAME: Lucia Mena : 1990 MR: [id number] V: [id number] EXAM DATE: ORDERING PHYSICIAN: KIM CHAVES TECHNOLOGIST: Location: [facility] Patient: Lucia Mena : 1990 Visit/Account:[id number] Date of Sevice: 08/01/2018 KNEE 3 VIEW LEFT, TIBIA FIBULA LEFT Indication: fall yesterday, struck tibial tuberosity, ttp Comparison: None. Findings: Left knee: The distal femur, proximal tibia and proximal fibula, the patella are intact. Soft tissue s are normal. Left tibia/fibula: The tibia and fibula are intact. Soft tissues are normal. IMPRESSION: 1. Normal left knee radiograph. 2. Normal left tibia and fibular radiograph. Report Dictated By: Rolf Perez at 08/01/2018 9:32 AM Report E-Signed By: Rolf Perez at 08/01/2018 9:33 AM WSN:[id number]
--- NOTE | 2018-08-01 09:39 | RADIOLOGY IMAGING REPORT ---
FACILITY: [facility] [place] PATIENT NAME: Lucia Mena : 1990 MR: [id number] V: [id number] EXAM DATE: ORDERING PHYSICIAN: KIM CHAVES TECHNOLOGIST: Location: [facility] Patient: Lucia Mena : 1990 Visit/Account:[id number] Date of Sevice: 08/01/2018 KNEE 3 VIEW LEFT, TIBIA FIBULA LEFT Indication: fall yesterday, struck tibial tuberosity, ttp Comparison: None. Findings: Left knee: The distal femur, proximal tibia and proximal fibula, the patella are intact. Soft tissue s are normal. Left tibia/fibula: The tibia and fibula are intact. Soft tissues are normal. IMPRESSION: 1. Normal left knee radiograph. 2. Normal left tibia and fibular radiograph. Report Dictated By: Rolf Perez at 08/01/2018 9:32 AM Report E-Signed By: Rolf Perez at 08/01/2018 9:33 AM WSN:[email or web address]
--- NOTE | 2018-08-01 09:52 | ER Report ---
History and Physical Time Seen By MD: 08:40 Hx. of Stated Complaint: PATIENT SLIPPED ON ICE YESTERDAY AND HIT HER LEFT KNEE ON A CEMENT WALL HPI/ROS CHIEF COMPLAINT: fall onto left knee HISTORY OF PRESENT ILLNESS: Pt fell 1 d ago, striking left knee. She denies hitting head, loc, or other injury. Denies preceding or subsequent zimmerman, cp, sob, syncope. She notes that she had small laceration on left knee that was controlled easily. She was able to help herself up and ambulate on the leg, but it has continued to be painful and bruised and she is concerned about possible fracture. Pain is moderate, controlled with tylenol and ice. REVIEW OF SYSTEMS: Constitutional: No fever, no chills. Eyes: No discharge. ENT: No sore throat. Cardiovascular: No chest pain, no palpitations. Respiratory: No cough, no shortness of breath. Gastrointestinal: No abdominal pain, no vomiting. Genitourinary: No hematuria. Musculoskeletal: No back pain. Skin: No rashes. Neurological: No headache. Remainder of the 14 system rev: Yes Allergies: Coded Allergies: latex (Verified Allergy, Intermediate, RASH, 06/03/18) adhesive (Verified Allergy, Mild, RASH, 06/03/18) Home Meds Reported Medications Albuterol Sulfate (PROVENTIL HFA) 6.7 Gm Inh, 1-2 PUFF INH 3-4XD, INH 04/23/18 Fluoxetine Hcl (PROZAC) 10 Mg Capsule, 10 MG PO QDAY, CAPSULE 04/23/18 Vits W-Ca,Fe,Fa(<1MG) ( VITAMINS) 1 Each Tablet, 1 EACH PO DAILY, TAB 01/26/18 Pantoprazole Sodium (PROTONIX) 40 Mg Granpkt.dr, 40 MG PO QDAY, PACK 01/26/18 Lamotrigine (LAMICTAL) 100 Mg Tablet, 150 MG PO QHS 06/13/15 Reviewed Nurses Notes: Yes Hx Smoking: Yes (1 YEAR OFF AND 1 A DAY) Smoking Status: Former Smoker Exposure to Second Hand Smoke?: No Hx Substance Use Disorder: No Hx Alcohol Use: No Constitutional Vital Sign - Last 24 Hours 08/01/18 08/01/18 08:37 09:56 Temp 98.4 Pulse 88 71 Resp 20 16 B/P (MAP) 115/70 111/80 (90) Pulse Ox 93 92 O2 Delivery Room Air Room Air Physical Exam General Appearance: The patient is alert, has no immediate need for airway protection and no signs of toxicity. [ ] Eyes: Pupils equal and round no pallor or injection. ENT, Mouth: Mucous membranes are moist. Respiratory: no respiratory distress Cardiovascular: Regular rate and rhythm. Neurological: alert, oriented, moves all ext Skin: warm and dry; left proximal tibia 1cm healing laceration surrounded by 6x4cm ecchymosis and ttp to tibial tuberosity. Musculoskeletal: extremities otherwise nontender, FROM, distal pulses intact patellar tendon intact DIFFERENTIAL DIAGNOSIS: After history and physical exam differential diagnosis was considered for fracture, dislocation, tendon rupture, contusion, infection , or other complication from fall Medical Decision Making ED Course/Re-evaluation ED Course Pt slipped on ice with direct injury to left knee; she has no e/o fx on xray images, no e/o cellulitis at laceration that has closed as it is 24 hours + from injury. Pt able to ambulate; findings c/w bone/soft tissue contusion; will d/c with SRP's. There are no sigsns of infection, but I gave strict rtn precautions for sgs of developing infection. Decision to Disposition Date: Aug 01, 2018 Decision to Disposition Time: 09:50 Depart Departure Latest Vital Signs Vital Signs Date Time Temp Pulse Resp B/P (MAP) Pulse Ox O2 Delivery O2 Flow Rate FiO2 08/01/18 09:56 71 16 111/80 (90) 92 Room Air 08/01/18 08:37 98.4 Impression: Primary Impression: Contusion of leg, left Condition: Improved Disposition: HOME OR SELF-CARE Referrals: ALEXANDREA LÓPEZ PA-C (PCP) Departure Forms: Medications Reconciliation, Patient Portal Information, ER Transition Record Patient Instructions: Contusion in Adults (ED) Additional Instructions: As we discussed, continue to ice, elevate, use tylenol or ibuprofen as needed. Apply bacitracin three times daily and return for increasing redness, swelling, signs of infection, or any concerns. Problem Qualifiers Primary Impression: Contusion of leg, left Encounter type: initial encounter Qualified Codes: S80.12XA - Contusion of left lower leg, initial encounter KIM CHAVES MD Aug 01, 2018 09:52
[2018-08-01 09:56] VITALS: BP 111/80
== END 2018-08-01 09:59 | disposition home or self-care (01) ==
LOC: ER 08:47
DX: S80.12XA Contusion of left lower leg, initial encounter (principal); W00.0XXA Fall on same level due to ice and snow, initial encounter
CPT/HCPCS: 99284

== ENCOUNTER 2018-09-13 18:54 | Emergency (ER) | payer MEDICAID ==
[2018-01-31 04:25] VITALS: Wt 80.7 kg
[2018-09-13] MEDS ORDERED: NS(*) 0.9% 1000 ML BAG 1,000 ML IV ONE (18:56)
[2018-09-13 18:59] VITALS: BP 131/88
[2018-09-13] MEDS ORDERED: ONDANSETRON 4 MG/2 ML VIAL IVP ONE (19:00)
--- NOTE | 2018-09-13 19:00 | ER Report ---
History and Physical Time Seen By MD: 18:59 HPI/ROS CHIEF COMPLAINT: Nausea with vomiting, positive test HISTORY OF PRESENT ILLNESS: Patient is a 28-year-old female who presents to the emergency department with 2-3 days of nausea and vomiting. She denies any abdominal pain. She states that she is approximate 3 days late from her last menstrual period. Patient has had 6 prior pregnancies with 3 miscarriages. She denies any other vaginal discharge. She denies vaginal bleeding. She denies dysuria. She denies fevers or chills. She denies chest pain or shortness of breath. Patient states that she did take a urine test at home and noted that it had a "faint double line indicating positive . Patient apparently has had falls positive test in the past. For this reason she presents to the emergency department for evaluation. REVIEW OF SYSTEMS: Respiratory: No cough, no dyspnea. Cardiovascular: No chest pain, no palpitations. Gastrointestinal: Nausea vomiting no abdominal pain Musculoskeletal: No back pain. Allergies: Coded Allergies: latex (Verified Allergy, Intermediate, RASH, 09/13/18) adhesive (Verified Allergy, Mild, RASH, 09/13/18) Home Meds Reported Medications Fluoxetine Hcl (PROZAC) 20 Mg Capsule, 20 MG PO QDAY, CAPSULE 09/13/18 Albuterol Sulfate (PROVENTIL HFA) 6.7 Gm Inh, 1-2 PUFF INH 3-4XD, INH 04/23/18 Vits W-Ca,Fe,Fa(<1MG) ( VITAMINS) 1 Each Tablet, 1 EACH PO DAILY, TAB 01/26/18 Pantoprazole Sodium (PROTONIX) 40 Mg Granpkt.dr, 40 MG PO QDAY, PACK 01/26/18 Lamotrigine (LAMICTAL) 100 Mg Tablet, 150 MG PO QHS 06/13/15 Discontinued Reported Medications Fluoxetine Hcl (PROZAC) 10 Mg Capsule, 10 MG PO QDAY, CAPSULE 04/23/18 Past Medical/Surgical History Medical history for gastroesophageal reflux disease and asthma. Hx Smoking: Yes (1 YEAR OFF AND 1 A DAY) Smoking Status: Former Smoker Exposure to Second Hand Smoke?: No Hx Substance Use Disorder: No Hx Alcohol Use: No Constitutional Vital Sign - Last 24 Hours 09/13/18 18:59 Temp 99.0 Pulse 119 Resp 15 B/P (MAP) 131/88 Pulse Ox 96 O2 Delivery Room Air Physical Exam General/Constitutional: Patient is awake, alert, nontoxic and in no acute respiratory distress. Head: Normocephalic and atraumatic. Eyes: Conjunctival clear, Sclera are clear and anicteric. Ears:External canals are clear. Tympanic membranes are clear with normal landmarks and light reflex. Nares: No rhinorrhea or bleeding. Turbinates are pink and moist. Oropharyngeal: Mucous membranes are moist. Neck: Supple, no adenopathy. Cardiovascular: Heart is regular rate and rhythm without audible murmurs, rubs or gallops. Pulmonary: Lungs are clear to auscultation bilaterally. There are no wheezes, rales, or rhonchi. Chest rise is symmetrical Abdomen: Soft, nontender, no guarding or peritoneal signs. Extremities: No gross deformities, No peripheral cyanosis. Able to move all 4 extremities. Neuro: Alert and oriented X3, Skin: No rashes, skin is warm dry and well perfused. Medical Decision Making Data Points Result Diagram: 09/13/18192209/13/181922 Laboratory Hematology Test 09/13/18 19:00 09/13/18 19:23 Urine Color Yellow Urine Clarity Clear Urine pH 6.0 pH (4.8-9.5) Urine Specific Stewart 1.024 Urine Protein Negative mg/dL (NEGATIVE) Urine Glucose (UA) Negative mg/dL (NEGATIVE) Urine Ketones Trace mg/dL (NEGATIVE) Urine Blood Negative (NEGATIVE) Urine Nitrite Negative (NEGATIVE) Urine Bilirubin Negative (NEGATIVE) Urine Urobilinogen 2.0 mg/dL (0.2-1.9) Urine Leukocyte Esterase Negative (NEGATIVE) Urine RBC <1 /HPF (0-2/HPF) Urine WBC 4 /HPF (0-5/HPF) Urine Squamous Epithelial Cells Many /LPF (</=FEW) Urine Bacteria Negative /HPF (NONE-FEW) Urine Mucus None /HPF (NONE-FEW) Red Blood Count 5.53 M/uL (4.17-5.56) Mean Corpuscular Volume 85.6 fL (80.0-96.0) Mean Corpuscular Hemoglobin 28.3 pg (26.0-33.0) Mean Corpuscular Hemoglobin Concent 33.1 g/dL (32.0-36.0) Red Cell Distribution Width 13.2 % (11.5-14.5) Mean Platelet Volume 8.4 fL (7.2-11.1) Neutrophils (%) (Auto) 71.4 % (39.4-72.5) Lymphocytes (%) (Auto) 22.9 % (17.6-49.6) Monocytes (%) (Auto) 3.8 % (4.1-12.4) Eosinophils (%) (Auto) 1.0 % (0.4-6.7) Basophils (%) (Auto) 0.9 % (0.3-1.4) Nucleated RBC Relative Count (auto) 0.1 /100WBC Neutrophils # (Auto) 5.9 K/uL (2.0-7.4) Lymphocytes # (Auto) 1.9 K/uL (1.3-3.6) Monocytes # (Auto) 0.3 K/uL (0.3-1.0) Eosinophils # (Auto) 0.1 K/uL (0.0-0.5) Basophils # (Auto) 0.1 K/uL (0.0-0.1) Nucleated RBC Absolute Count (auto) 0.01 K/uL Sodium Level 139 mmol/L (137-145) Potassium Level 3.7 mmol/L (3.5-5.0) Chloride Level 107 mmol/L (98-107) Carbon Dioxide Level 22 mmol/L (22-31) Blood Urea Nitrogen 14 mg/dl (7-18) Creatinine 0.70 mg/dl (0.52-1.04) Glomerular Filtration Rate Calc > 60.0 Random Glucose 109 mg/dl (75-110) Calcium Level 9.0 mg/dl (8.4-10.2) Total Bilirubin 0.3 mg/dl (0.2-1.3) Aspartate Amino Transf (AST/SGOT) 21 U/L (0-35) Alanine Aminotransferase (ALT/SGPT) 21 U/L (0-56) Alkaline Phosphatase 73 U/L (0-126) Total Protein 6.8 g/dl (6.3-8.2) Albumin 4.2 g/dl (3.5-5.0) Lipase 49 U/L (23-300) Human Chorionic Gonadotropin, Quant 29 mIU/ml Helicobacter pylori IgG Antibody Negative (NEGATIVE) Chemistry Test 09/13/18 19:00 09/13/18 19:23 Urine Color Yellow Urine Clarity Clear Urine pH 6.0 pH (4.8-9.5) Urine Specific Stewart 1.024 Urine Protein Negative mg/dL (NEGATIVE) Urine Glucose (UA) Negative mg/dL (NEGATIVE) Urine Ketones Trace mg/dL (NEGATIVE) Urine Blood Negative (NEGATIVE) Urine Nitrite Negative (NEGATIVE) Urine Bilirubin Negative (NEGATIVE) Urine Urobilinogen 2.0 mg/dL (0.2-1.9) Urine Leukocyte Esterase Negative (NEGATIVE) Urine RBC <1 /HPF (0-2/HPF) Urine WBC 4 /HPF (0-5/HPF) Urine Squamous Epithelial Cells Many /LPF (</=FEW) Urine Bacteria Negative /HPF (NONE-FEW) Urine Mucus None /HPF (NONE-FEW) White Blood Count 8.3 k/uL (4.5-11.0) Red Blood Count 5.53 M/uL (4.17-5.56) Hemoglobin 15.7 g/dL (12.0-16.0) Hematocrit 47.3 % (34.0-47.0) Mean Corpuscular Volume 85.6 fL (80.0-96.0) Mean Corpuscular Hemoglobin 28.3 pg (26.0-33.0) Mean Corpuscular Hemoglobin Concent 33.1 g/dL (32.0-36.0) Red Cell Distribution Width 13.2 % (11.5-14.5) Platelet Count 251 K/uL (150-450) Mean Platelet Volume 8.4 fL (7.2-11.1) Neutrophils (%) (Auto) 71.4 % (39.4-72.5) Lymphocytes (%) (Auto) 22.9 % (17.6-49.6) Monocytes (%) (Auto) 3.8 % (4.1-12.4) Eosinophils (%) (Auto) 1.0 % (0.4-6.7) Basophils (%) (Auto) 0.9 % (0.3-1.4) Nucleated RBC Relative Count (auto) 0.1 /100WBC Neutrophils # (Auto) 5.9 K/uL (2.0-7.4) Lymphocytes # (Auto) 1.9 K/uL (1.3-3.6) Monocytes # (Auto) 0.3 K/uL (0.3-1.0) Eosinophils # (Auto) 0.1 K/uL (0.0-0.5) Basophils # (Auto) 0.1 K/uL (0.0-0.1) Nucleated RBC Absolute Count (auto) 0.01 K/uL Glomerular Filtration Rate Calc > 60.0 Calcium Level 9.0 mg/dl (8.4-10.2) Total Bilirubin 0.3 mg/dl (0.2-1.3) Aspartate Amino Transf (AST/SGOT) 21 U/L (0-35) Alanine Aminotransferase (ALT/SGPT) 21 U/L (0-56) Alkaline Phosphatase 73 U/L (0-126) Total Protein 6.8 g/dl (6.3-8.2) Albumin 4.2 g/dl (3.5-5.0) Lipase 49 U/L (23-300) Human Chorionic Gonadotropin, Quant 29 mIU/ml Helicobacter pylori IgG Antibody Negative (NEGATIVE) Urinalysis Test 09/13/18 19:00 Urine Color Yellow Urine Clarity Clear Urine pH 6.0 pH (4.8-9.5) Urine Specific Stewart 1.024 Urine Protein Negative mg/dL (NEGATIVE) Urine Glucose (UA) Negative mg/dL (NEGATIVE) Urine Ketones Trace mg/dL (NEGATIVE) Urine Blood Negative (NEGATIVE) Urine Nitrite Negative (NEGATIVE) Urine Bilirubin Negative (NEGATIVE) Urine Urobilinogen 2.0 mg/dL (0.2-1.9) Urine Leukocyte Esterase Negative (NEGATIVE) Urine RBC <1 /HPF (0-2/HPF) Urine WBC 4 /HPF (0-5/HPF) Urine Squamous Epithelial Cells Many /LPF (</=FEW) Urine Bacteria Negative /HPF (NONE-FEW) Urine Mucus None /HPF (NONE-FEW) ED Course/Re-evaluation ED Course Plan at this time will be to check urine and serum test. Patient was offered Zofran but she refused. Patient is receiving IV fluids and states that this is making her feel better. 09/13/2018 8:20:43 pm serum and urine test is positive with an ATG of 29. Patient is instructed to schedule a follow-up appointment with her OB doctor. She was instructed to return for fevers any vaginal bleeding or pelvic pain or abdominal pain. Decision to Disposition Date: Sep 13, 2018 Decision to Disposition Time: 20:21 Depart Departure Latest Vital Signs Vital Signs Date Time Temp Pulse Resp B/P (MAP) Pulse Ox O2 Delivery O2 Flow Rate FiO2 09/13/18 18:59 99.0 119 15 131/88 96 Room Air Impression: Primary Impression: and not yet delivered in first trimester Additional Impression: Nausea & vomiting Condition: Improved Disposition: HOME OR SELF-CARE Referrals: ALEXANDREA LÓPEZ PA-C (PCP) Patient Instructions: First Trimester (ED) Problem Qualifiers Additional Impression: Nausea & vomiting Vomiting type: unspecified Vomiting Intractability: unspecified Qualified Codes: R11.2 - Nausea with vomiting, unspecified KIM LITTLE MD Sep 13, 2018 19:00
[2018-09-13] MEDS ORDERED: FLUO-202 PO (19:05)
[2018-09-13 19:34] LABS: PLATELET COUNT, AUTOMATED 251 K/uL (150-450)
== END 2018-09-13 20:28 | disposition home or self-care (01) ==
LOC: ER 19:02
DX: O21.9 Vomiting of pregnancy, unspecified (principal)
CPT/HCPCS: 81001; 83690; 84702; 85025; 86677; 96360; 99283; J7030; 82040; 82247; 82310; 82374; 82435; 82565; 82947; 84075; 84132; 84155; 84295; 84450; 84460; 84520

== ENCOUNTER 2018-10-25 15:50 | Emergency (ER) | payer MEDICAID ==
[2018-01-31 04:25] VITALS: Wt 81.6 kg
[~2018-10-25 15:50] MED LIST changes: +FLUO-202 PO
--- NOTE | 2018-10-25 16:01 | ER Report ---
History and Physical Time Seen By MD: 16:01 HPI/ROS CHIEF COMPLAINT: Vaginal bleeding, 10 weeks HISTORY OF PRESENT ILLNESS: 28-year-old female patient presents to emergency room with complaint of vaginal bleeding. Patient states she is currently 10 weeks . Patient states that this is her 6 time being . Patient has 3 spontaneous abortions and 2 live births. Patient states that this afternoon approximately 30 minutes prior to arrival emergency room she felt like she had urinated herself. She checked and noted that she had blood. Patient states that she had that blood initially, and after that she's having small am ount of spotting. Patient denies having any cramping, nausea, vomiting. Patient states she has not had any fevers. Patient is concerned about possible . REVIEW OF SYSTEMS: Respiratory: No cough, no dyspnea. Cardiovascular: No chest pain, no palpitations. Gastrointestinal: No vomiting, no abdominal pain. Musculoskeletal: No back pain. Allergies: Coded Allergies: latex (Verified Allergy, Intermediate, RASH, 09/13/18) adhesive (Verified Allergy, Mild, RASH, 09/13/18) Home Meds Reported Medications Albuterol Sulfate (PROVENTIL HFA) 6.7 Gm Inh, 1-2 PUFF INH 3-4XD, INH 04/23/18 Vits W-Ca,Fe,Fa(<1MG) ( VITAMINS) 1 Each Tablet, 1 EACH PO DAILY, TAB 01/26/18 Pantoprazole Sodium (PROTONIX) 40 Mg Granpkt.dr, 40 MG PO QDAY, PACK 01/26/18 Lamotrigine (LAMICTAL) 100 Mg Tablet, 50 MG PO QHS 06/13/15 Discontinued Reported Medications Fluoxetine Hcl (PROZAC) 20 Mg Capsule, 20 MG PO QDAY, CAPSULE 09/13/18 Past Medical/Surgical History Patient has a past medical history of migraines, asthma, reflux, cholecystitis, and he choses, clavicle fracture, rib fracture, bipolar, suicidal ideation, suicide attempts, self-harm, anxiety. Patient has a surgical history of a colonoscopy, laparoscopy, cholecystectomy. Patient has a family medical history of cancer, stroke. Reviewed Nurses Notes: Yes Hx Smoking: Yes (1 YEAR OFF AND 1 A DAY) Smoking Status: Former Smoker, Current: Some Days Smoker Exposure to Second Hand Smoke?: No Hx Substance Use Disorder: No Hx Alcohol Use: No Constitutional Vital Sign - Last 24 Hours 10/25/18 10/25/18 10/25/18 10/25/18 15:50 15:55 16:03 16:15 Temp 98.1 Pulse 73 73 84 Resp 42 22 20 B/P (MAP) 121/58 61/46 (51) Pulse Ox 95 95 95 O2 Delivery Room Air 10/25/18 10/25/18 10/25/18 10/25/18 16:20 16:25 16:30 16:35 Pulse 72 77 69 73 Resp 26 11 19 30 B/P (MAP) 94/68 (77) Pulse Ox 95 100 99 97 10/25/18 10/25/18 10/25/18 16:40 16:48 19:10 Temp 98.1 Pulse 69 80 89 116 Resp 22 B/P (MAP) 117/75 (89) 104/67 (79) 121/58 (79) 116/64 (81) Pulse Ox 97 96 O2 Delivery Room Air Physical Exam General Appearance: The patient is alert, has no immediate need for airway protection and no current signs of toxicity. Respiratory: Chest is non tender, lungs are clear to auscultation. Cardiac: regular rate and rhythm Gastrointestinal: Abdomen is soft and non tender, no masses, bowel sounds normal. Musculoskeletal: Neck: Neck is supple and non tender. Extremities have full range of motion and are non tender. Skin: No rashes or lesions. DIFFERENTIAL DIAGNOSIS: After history and physical exam differential diagnosis was considered for spontaneous , threatened , subchorionic hemorrhage, vaginal bleeding the first trimester. Medical Decision Making Data Points Result Diagram: 10/25/18 1636 10/25/18 1636 Laboratory Hematology Test 10/25/18 16:36 Red Blood Count 4.99 M/uL (4.17-5.56) Mean Corpuscular Volume 87.4 fL (80.0-96.0) Mean Corpuscular Hemoglobin 29.4 pg (26.0-33.0) Mean Corpuscular Hemoglobin Concent 33.6 g/dL (32.0-36.0) Red Cell Distribution Width 13.6 % (11.5-14.5) Mean Platelet Volume 7.8 fL (7.2-11.1) Neutrophils (%) (Auto) 71.3 % (39.4-72.5) Lymphocytes (%) (Auto) 22.4 % (17.6-49.6) Monocytes (%) (Auto) 5.0 % (4.1-12.4) Eosinophils (%) (Auto) 0.5 % (0.4-6.7) Basophils (%) (Auto) 0.8 % (0.3-1.4) Nucleated RBC Relative Count (auto) 0.0 /100WBC Neutrophils # (Auto) 6.1 K/uL (2.0-7.4) Lymphocytes # (Auto) 1.9 K/uL (1.3-3.6) Monocytes # (Auto) 0.4 K/uL (0.3-1.0) Eosinophils # (Auto) 0.0 K/uL (0.0-0.5) Basophils # (Auto) 0.1 K/uL (0.0-0.1) Nucleated RBC Absolute Count (auto) 0.00 K/uL Prothrombin Time 13.6 seconds (12.0-14.4) Prothromb Time International Ratio 1.04 Activated Partial Thromboplast Time 29 seconds (23-35) Sodium Level 137 mmol/L (137-145) Potassium Level 3.7 mmol/L (3.5-5.0) Chloride Level 111 mmol/L (98-107) Carbon Dioxide Level 20 mmol/L (22-31) Blood Urea Nitrogen 7 mg/dl (7-18) Creatinine 0.50 mg/dl (0.52-1.04) Glomerular Filtration Rate Calc > 60.0 Random Glucose 99 mg/dl (75-110) Calcium Level 9.1 mg/dl (8.4-10.2) Total Bilirubin 0.4 mg/dl (0.2-1.3) Aspartate Amino Transf (AST/SGOT) 13 U/L (0-35) Alanine Aminotransferase (ALT/SGPT) 18 U/L (0-56) Alkaline Phosphatase 55 U/L (0-126) Total Protein 6.8 g/dl (6.3-8.2) Albumin 4.4 g/dl (3.5-5.0) Human Chorionic Gonadotropin, Qual Positive (NEGATIVE) Chemistry Test 10/25/18 16:36 White Blood Count 8.6 k/uL (4.5-11.0) Red Blood Count 4.99 M/uL (4.17-5.56) Hemoglobin 14.6 g/dL (12.0-16.0) Hematocrit 43.6 % (34.0-47.0) Mean Corpuscular Volume 87.4 fL (80.0-96.0) Mean Corpuscular Hemoglobin 29.4 pg (26.0-33.0) Mean Corpuscular Hemoglobin Concent 33.6 g/dL (32.0-36.0) Red Cell Distribution Width 13.6 % (11.5-14.5) Platelet Count 252 K/uL (150-450) Mean Platelet Volume 7.8 fL (7.2-11.1) Neutrophils (%) (Auto) 71.3 % (39.4-72.5) Lymphocytes (%) (Auto) 22.4 % (17.6-49.6) Monocytes (%) (Auto) 5.0 % (4.1-12.4) Eosinophils (%) (Auto) 0.5 % (0.4-6.7) Basophils (%) (Auto) 0.8 % (0.3-1.4) Nucleated RBC Relative Count (auto) 0.0 /100WBC Neutrophils # (Auto) 6.1 K/uL (2.0-7.4) Lymphocytes # (Auto) 1.9 K/uL (1.3-3.6) Monocytes # (Auto) 0.4 K/uL (0.3-1.0) Eosinophils # (Auto) 0.0 K/uL (0.0-0.5) Basophils # (Auto) 0.1 K/uL (0.0-0.1) Nucleated RBC Absolute Count (auto) 0.00 K/uL Prothrombin Time 13.6 seconds (12.0-14.4) Prothromb Time International Ratio 1.04 Activated Partial Thromboplast Time 29 seconds (23-35) Glomerular Filtration Rate Calc > 60.0 Calcium Level 9.1 mg/dl (8.4-10.2) Total Bilirubin 0.4 mg/dl (0.2-1.3) Aspartate Amino Transf (AST/SGOT) 13 U/L (0-35) Alanine Aminotransferase (ALT/SGPT) 18 U/L (0-56) Alkaline Phosphatase 55 U/L (0-126) Total Protein 6.8 g/dl (6.3-8.2) Albumin 4.4 g/dl (3.5-5.0) Human Chorionic Gonadotropin, Qual Positive (NEGATIVE) Coagulation Test 10/25/18 16:36 Prothrombin Time 13.6 seconds Prothromb Time International Ratio 1.04 Activated Partial Thromboplast Time 29 seconds EKG/Imaging Imaging OB TRANSVAGINAL INDICATION: Bleeding, COMPARISON: None available FINDINGS: There is a single, living, intrauterine gestation which contains a pole measuring up to 26 mm in keeping with a 9 week 4 day gestation. Cardiac activity within the pole measures 163 bpm. There is isoechoic and minimally hypoechoic subchorionic hemorrhage measuring up to 4.7 x 3.2 x 4.4 cm. The right ovary is normal with expected blood flow. The left ovary is normal with expected blood flow. No pelvic fluid identified. IMPRESSION: 1. Moderate-sized subchorionic hemorrhage measures 4.7 x 3.2 x 4.4 cm. 2. Single, living, intrauterine gestation at 9 weeks 4 days. Results were called to ORLANDO MCKEON on 10/25/2018 6:26 PM. Report Dictated By: José Manuel Reis MD at 10/25/2018 6:07 PM Report E-Signed By: José Manuel Reis MD at 10/25/2018 6:26 PM ED Course/Re-evaluation ED Course Patient was admitted to an exam room, history and physical were obtained. Differential diagnoses were considered. On examination lungs are clear, heart is regular, abdomen is soft and nontender. An IV was started, patient received a liter of normal saline. A CBC, CMP, hCG, blood type was obtained. A transvaginal ultrasound was done. Labs were unremarkable, patient was positive for . Patient had a blood type of O+. Transvaginal ultrasound showed a large subchorionic hemorrhage which measured 4.7 x 4.4 x 3.2. I discussed the case with Dr. Pastrana, shoemaker custom, recommendation was to allow the patient home. She was to do no strenuous activity, she was to go on pelvic rest. It is also recommended that she be informed that this could be the beginnings of an , but it could resolve on its own without loss of the baby. She is to follow-up in 2-3 days with her shoemaker custom, Dr. Nur. I discussed this with patient who verbalized understanding and agreement with plan. Decision to Disposition Date: Oct 25, 2018 Decision to Disposition Time: 19:01 Depart Departure Latest Vital Signs Vital Signs Date Time Temp Pulse Resp B/P (MAP) Pulse Ox O2 Delivery O2 Flow Rate FiO2 10/25/18 19:10 104/67 (79) 10/25/18 16:48 98.1 80 96 Room Air 89 116 10/25/18 16:40 22 Impression: Primary Impression: Threatened in first trimester Condition: Improved Disposition: HOME OR SELF-CARE Referrals: LOUIS NUR DO (PCP) Patient Instructions: Threatened Miscarriage (ED) Additional Instructions: Increase fluid intake. Get plenty of rest. Follow up with Dr. Nur on or Wednesday. Call to make an appointment. Pelvic rest (no intercourse) until cleared by your OB. No strenuous activity, you may continue with your normal activities. ORLANDO MCKEON Oct 25, 2018 16:01
[2018-10-25] MEDS ORDERED: NS(*) 0.9% 1000 ML BAG 1,000 ML IV ONE (16:17)
[2018-10-25 16:50] LABS: PLATELET COUNT, AUTOMATED 252 K/uL (150-450)
[2018-10-25 17:00] LABS: INR 1.04
--- NOTE | 2018-10-25 18:31 | RADIOLOGY IMAGING REPORT ---
FACILITY: [facility] PATIENT NAME: Lucia Mena : 1990 MR: [id number] V: [id number] EXAM DATE: ORDERING PHYSICIAN: ORLANDO MCKEON TECHNOLOGIST: [facility] Patient: Lucia Mena : 1990 Visit/Account:[id number] Date of Sevice: 10/25/2018 OB TRANSVAGINAL INDICATION: Bleeding, COMPARISON: None available FINDINGS: There is a single, living, intrauterine gestation which contains a pole measuring up to 26 mm i n keeping with a 9 week 4 day gestation. Cardiac activity within the pole measures 163 bpm. There is isoechoic and minimally hypoechoic subchorionic hemorrhage measuring up to 4.7 x 3.2 x 4.4 c m. The right ovary is normal with expected blood flow. The left ovary is normal with expected blood flow . No pelvic fluid identified. IMPRESSION: 1. Moderate-sized subchorionic hemorrhage measures 4.7 x 3.2 x 4.4 cm. 2. Single, living, intrauterine gestation at 9 weeks 4 days. Results were called to ORLANDO MCKEON on 10/25/2018 6:26 PM. Report Dictated By: José Manuel Reis MD at 10/25/2018 6:07 PM Report E-Signed By: José Manuel Reis MD at 10/25/2018 6:26 PM WSN:[id number]
[2018-10-25 19:10] VITALS: BP 104/67
== END 2018-10-25 19:11 | disposition home or self-care (01) ==
LOC: ER 16:04
DX: O20.0 Threatened abortion (principal); Z3A.10 10 weeks gestation of pregnancy
CPT/HCPCS: 76817; 84703; 85025; 85610; 85730; 86900; 86901; 96360; 99284; J7030; 82040; 82247; 82310; 82374; 82435; 82565; 82947; 84075; 84132; 84155; 84295; 84450; 84460; 84520

== ENCOUNTER → 2018-11-22 | Outpatient (CLI) | payer MEDICAID ==
[2018-01-31 04:25] VITALS: BMI 32.3
== END ==
LOC: LAB 15:14
PROVIDERS: ATTEND Obstetrics & Gynecology
DX: R53.83 Other fatigue (principal)
CPT/HCPCS: 36415; 84443; 85027

== ENCOUNTER → 2018-12-05 | Outpatient (CLI) | payer MEDICAID ==
[2018-01-31 04:25] VITALS: BMI 32.3
== END ==
LOC: LAB 15:13
PROVIDERS: ATTEND Advanced Practice Midwife
DX: R10.9 Unspecified abdominal pain (principal)
CPT/HCPCS: 87491; 87591

== ENCOUNTER → 2018-12-09 | Outpatient (CLI) | payer MEDICAID ==
[2018-01-31 04:25] VITALS: BMI 32.3
--- NOTE | 2018-12-09 15:43 | RADIOLOGY IMAGING REPORT ---
[place] [facility] [place]IENT NAME: Lucia Mena : 1990 MR: [id number] V: [id number] EXAM DATE: [id number] ORDERING PHYSICIAN: SHALINI VALLE TECHNOLOGIST: Location: [facility] Patient: Lucia Mena : 1990 Visit/Account:[id number] Date of Sevice: 12/09/2018 OB FOLLOW-UP COMPARISON: October 25, 2018 HISTORY: THREATENED , LMP 08/13/2018, large subchronic hemorrhage on the prior. FINDINGS: NUMBER: One. HEART RATE: 150 BPM POSITION: Variable PLACENTA LOCATION: Posterior and fundal. No previa. There is no definite residual subchronic hemor rhage. There are two small hypoechoic foci in the placenta which are most consistent with venous lak es. AMNIOTIC FLUID: Visually normal although an amniotic fluid index was not directly calculated. The following growth parameters were measured on today's exam: SIZE DATE PERCENTILE BIPARIETAL DIAMETER: 3.41 cm 16 weeks four days 33 HEAD CIRCUMFERENCE: 12.48 cm 16 weeks two days 13 ABD CIRCUMFERENCE: 10.63 cm 16 weeks four days 39 FEMUR LENGTH: 2.18 cm 16 weeks four days 32 ESTIMATED WEIGHT: 159 grams, plus minus 24 grams . This is in the 23rd percentile on the Hadl ock chart. MENSTRUAL AGE/KLARISSA: 16 weeks two days 05/20/2019 ULTRASOUND AGE/KLARISSA: Average ultrasound age (AUA): 16 weeks four days with an KLARISSA of 05/22/2019 based on today's measuremen ts IMPRESSION: Single viable intrauterine in variable presentation, measuring 16 weeks four days by toda y's ultrasound with estimated due date 05/22/2019 by today's ultrasound. Size is concordant with date s. The placenta is fundal and posterior, without previa. No residual subchorionic hemorrhage. Placental venous lakes are noted. Report Dictated By: Andrae Anderson at 12/09/2018 3:34 PM Report E-Signed By: Andrae Anderson at 12/09/2018 3:39 PM WSN:[email or web address]
== END ==
LOC: LAB 09:23
PROVIDERS: ATTEND Obstetrics & Gynecology
DX: O09.92 Supervision of high risk pregnancy, unspecified, second trimester (principal); O26.842 Uterine size-date discrepancy, second trimester; Z3A.16 16 weeks gestation of pregnancy
CPT/HCPCS: 36415; 76816; 81511

== ENCOUNTER 2018-12-26 22:13 | Emergency (ER) | payer MEDICAID ==
[2018-01-31 04:25] VITALS: Wt 77.1 kg
[~2018-12-26 22:13] MED LIST changes: +ONDA4TAB97 PO
--- NOTE | 2018-12-26 22:19 | ER Report ---
History and Physical Time Seen By MD: 22:19 HPI/ROS CHIEF COMPLAINT: Vomiting and diarrhea, right lower quadrant abdominal pain for 2 hours HISTORY OF PRESENT ILLNESS: 28-year-old female, , SAB 3, 20 weeks . Patient denies consumption of bad food, recent travel or exposure to ill contacts. She denies recent antibiotic use. Patient notes that she's been vomiting and having diarrhea for 2 days. Her vomiting is decreased today. She's been able to keep some fluids down. She developed right lower quadrant pain. She is concerned she may have an appendicitis. She reports she was seen in OB clinic yesterday. REVIEW OF SYSTEMS: Respiratory: No cough, no dyspnea. Cardiovascular: No chest pain, no palpitations. Gastrointestinal: As above Musculoskeletal: No back pain. Allergies: Coded Allergies: latex (Verified Allergy, Intermediate, RASH, 12/26/18) adhesive (Verified Allergy, Mild, RASH, 12/26/18) Home Meds Active Scripts Ondansetron 4 Mg Odt (ONDANSETRON 4 MG ODT) 4 Mg Tab.rapdis, 4 MG PO Q6H PRN for NAUSEA/VOMITING, #12 TAB Prov:PUJA BASSETT DO 12/27/18 Ondansetron Hcl (ZOFRAN) 4 Mg Tablet, 4 MG PO Q6H PRN for nausea, #20 TAB 0 Re fills Prov:JOSE FLORENCE CN 12/26/18 Reported Medications Albuterol Sulfate (PROVENTIL HFA) 6.7 Gm Inh, 1-2 PUFF INH 3-4XD, INH 04/23/18 Vits W-Ca,Fe,Fa(<1MG) ( VITAMINS) 1 Each Tablet, 1 EACH PO DAILY, TAB 01/26/18 Pantoprazole Sodium (PROTONIX) 40 Mg Granpkt.dr, 40 MG PO QDAY, PACK 01/26/18 Lamotrigine (LAMICTAL) 100 Mg Tablet, 50 MG PO QHS 06/13/15 Reviewed Nurses Notes: Yes Old Medical Records Reviewed: Yes Hx Smoking: Yes (1 YEAR OFF AND 1 A DAY) Smoking Status: Former Smoker, Current: Some Days Smoker Exposure to Second Hand Smoke?: No Hx Substance Use Disorder: No Hx Alcohol Use: No Constitutional Vital Sign - Last 24 Hours 12/26/18 12/26/18 12/26/1812/26/19 22:13 22:28 22:34 22:34 Temp 98.7 Pulse ? 90 Resp 14 B/P (MAP) 123/71 (88) 123/71 Pulse Ox 95 O2 Delivery Room Air 12/26/18 12/26/18 12/26/18 12/26/18 22:43 22:45 22:58 23:00 Pulse 79 76 B/P (MAP) 99/64 (76) 102/58 (73) Pulse Ox 98 95 12/26/18 12/26/18 12/26/18 12/26/18 23:13 23:15 23:28 23:30 Pulse 69 71 B/P (MAP) 95/76 (82) 109/69 (82) Pulse Ox 100 100 12/26/18 12/26/18 12/26/18 12/27/18 23:43 23:45 23:58 00:00 Pulse 69 64 B/P (MAP) 87/57 (67) 98/58 (71) Pulse Ox 96 95 Physical Exam General Appearance: The patient is alert, has no immediate need for airway protection and no current signs of toxicity. Vital signs stable, afebrile, pulse ox normal HEENT: Pupils equal and round no injection. Respiratory: Chest is non tender, lungs are clear to auscultation. Cardiac: regular rate and rhythm Gastrointestinal: Abdomen is soft and non tender, gravid consistent with dates, no right lower quadrant tenderness or rebound or guarding no masses, bowel sounds normal. Musculoskeletal: Neck: Neck is supple and non tender. Extremities have full range of motion and are non tender. Skin: No rashes or lesions. DIFFERENTIAL DIAGNOSIS: After history and physical exam differential diagnosis was considered for abdominal pain including but not limited to appendicitis, cholecystitis, gastroenteritis, viral syndrome, food poisoning gastritis and urinary tract infection. Medical Decision Making Data Points Result Diagram: 12/26/18223912/26/182239 Laboratory Hematology Test 12/26/18 22:40 12/26/18 23:36 Red Blood Count 4.72 M/uL (4.17-5.56) Mean Corpuscular Volume 87.1 fL (80.0-96.0) Mean Corpuscular Hemoglobin 29.3 pg (26.0-33.0) Mean Corpuscular Hemoglobin Concent 33.6 g/dL (32.0-36.0) Red Cell Distribution Width 12.9 % (11.5-14.5) Mean Platelet Volume 8.0 fL (7.2-11.1) Neutrophils (%) (Auto) 70.4 % (39.4-72.5) Lymphocytes (%) (Auto) 23.5 % (17.6-49.6) Monocytes (%) (Auto) 4.7 % (4.1-12.4) Eosinophils (%) (Auto) 0.8 % (0.4-6.7) Basophils (%) (Auto) 0.6 % (0.3-1.4) Nucleated RBC Relative Count (auto) 0.0 /100WBC Neutrophils # (Auto) 6.5 K/uL (2.0-7.4) Lymphocytes # (Auto) 2.2 K/uL (1.3-3.6) Monocytes # (Auto) 0.4 K/uL (0.3-1.0) Eosinophils # (Auto) 0.1 K/uL (0.0-0.5) Basophils # (Auto) 0.1 K/uL (0.0-0.1) Nucleated RBC Absolute Count (auto) 0.00 K/uL Sodium Level 134 mmol/L (137-145) Potassium Level 3.3 mmol/L (3.5-5.0) Chloride Level 107 mmol/L (98-107) Carbon Dioxide Level 21 mmol/L (22-31) Blood Urea Nitrogen 6 mg/dl (7-18) Creatinine 0.40 mg/dl (0.52-1.04) Glomerular Filtration Rate Calc > 60.0 Random Glucose 90 mg/dl (75-110) Calcium Level 8.2 mg/dl (8.4-10.2) Total Bilirubin 0.6 mg/dl (0.2-1.3) Aspartate Amino Transf (AST/SGOT) 16 U/L (0-35) Alanine Aminotransferase (ALT/SGPT) 18 U/L (0-56) Alkaline Phosphatase 56 U/L (0-126) Total Protein 6.3 g/dl (6.3-8.2) Albumin 3.8 g/dl (3.5-5.0) Amylase Level 77 U/L (0-110) Lipase 19 U/L (23-300) Urine Color Yellow Urine Clarity Clear Urine pH 7.0 pH (4.8-9.5) Urine Specific [place] 1.009 Urine Protein Negative mg/dL (NEGATIVE) Urine Glucose (UA) Negative mg/dL (NEGATIVE) Urine Ketones 20 mg/dL (NEGATIVE) Urine Blood Negative (NEGATIVE) Urine Nitrite Negative (NEGATIVE) Urine Bilirubin Negative (NEGATIVE) Urine Urobilinogen 1.0 mg/dL (0.2-1.9) Urine Leukocyte Esterase Trace (NEGATIVE) Urine RBC <1 /HPF (0-2/HPF) Urine WBC 5 /HPF (0-5/HPF) Urine WBC Clumps Few /HPF Urine Squamous Epithelial Cells Many /LPF (</=FEW) Urine Bacteria Few /HPF (NONE-FEW) Urine Mucus None /HPF (NONE-FEW) Chemistry Test 12/26/18 22:40 12/26/18 23:36 White Blood Count 9.3 k/uL (4.5-11.0) Red Blood Count 4.72 M/uL (4.17-5.56) Hemoglobin 13.8 g/dL (12.0-16.0) Hematocrit 41.2 % (34.0-47.0) Mean Corpuscular Volume 87.1 fL (80.0-96.0) Mean Corpuscular Hemoglobin 29.3 pg (26.0-33.0) Mean Corpuscular Hemoglobin Concent 33.6 g/dL (32.0-36.0) Red Cell Distribution Width 12.9 % (11.5-14.5) Platelet Count 209 K/uL (150-450) Mean Platelet Volume 8.0 fL (7.2-11.1) Neutrophils (%) (Auto) 70.4 % (39.4-72.5) Lymphocytes (%) (Auto) 23.5 % (17.6-49.6) Monocytes (%) (Auto) 4.7 % (4.1-12.4) Eosinophils (%) (Auto) 0.8 % (0.4-6.7) Basophils (%) (Auto) 0.6 % (0.3-1.4) Nucleated RBC Relative Count (auto) 0.0 /100WBC Neutrophils # (Auto) 6.5 K/uL (2.0-7.4) Lymphocytes # (Auto) 2.2 K/uL (1.3-3.6) Monocytes # (Auto) 0.4 K/uL (0.3-1.0) Eosinophils # (Auto) 0.1 K/uL (0.0-0.5) Basophils # (Auto) 0.1 K/uL (0.0-0.1) Nucleated RBC Absolute Count (auto) 0.00 K/uL Glomerular Filtration Rate Calc > 60.0 Calcium Level 8.2 mg/dl (8.4-10.2) Total Bilirubin 0.6 mg/dl (0.2-1.3) Aspartate Amino Transf (AST/SGOT) 16 U/L (0-35) Alanine Aminotransferase (ALT/SGPT) 18 U/L (0-56) Alkaline Phosphatase 56 U/L (0-126) Total Protein 6.3 g/dl (6.3-8.2) Albumin 3.8 g/dl (3.5-5.0) Amylase Level 77 U/L (0-110) Lipase 19 U/L (23-300) Urine Color Yellow Urine Clarity Clear Urine pH 7.0 pH (4.8-9.5) Urine Specific [place] 1.009 Urine Protein Negative mg/dL (NEGATIVE) Urine Glucose (UA) Negative mg/dL (NEGATIVE) Urine Ketones 20 mg/dL (NEGATIVE) Urine Blood Negative (NEGATIVE) Urine Nitrite Negative (NEGATIVE) Urine Bilirubin Negative (NEGATIVE) Urine Urobilinogen 1.0 mg/dL (0.2-1.9) Urine Leukocyte Esterase Trace (NEGATIVE) Urine RBC <1 /HPF (0-2/HPF) Urine WBC 5 /HPF (0-5/HPF) Urine WBC Clumps Few /HPF Urine Squamous Epithelial Cells Many /LPF (</=FEW) Urine Bacteria Few /HPF (NONE-FEW) Urine Mucus None /HPF (NONE-FEW) Urinalysis Test 12/26/18 23:36 Urine Color Yellow Urine Clarity Clear Urine pH 7.0 pH (4.8-9.5) Urine Specific [place] 1.009 Urine Protein Negative mg/dL (NEGATIVE) Urine Glucose (UA) Negative mg/dL (NEGATIVE) Urine Ketones 20 mg/dL (NEGATIVE) Urine Blood Negative (NEGATIVE) Urine Nitrite Negative (NEGATIVE) Urine Bilirubin Negative (NEGATIVE) Urine Urobilinogen 1.0 mg/dL (0.2-1.9) Urine Leukocyte Esterase Trace (NEGATIVE) Urine RBC <1 /HPF (0-2/HPF) Urine WBC 5 /HPF (0-5/HPF) Urine WBC Clumps Few /HPF Urine Squamous Epithelial Cells Many /LPF (</=FEW) Urine Bacteria Few /HPF (NONE-FEW) Urine Mucus None /HPF (NONE-FEW) EKG/Imaging Imaging Results: Ultrasound of the OB limited ultrasound was obtained. The results of the study are Ultrasound transabdominal OB > 14 weeks HISTORY: , right lower quadrant pain with nausea and vomiting. COMPARISON: 12/09/2018 and previous. TECHNIQUE: Transabdominal imaging was performed for assessment of the fetus and maternal pelvic structures. Transvaginal imaging was not performed. FINDINGS: Placenta: Posterior/fundal without previa. Redemonstration of probable placental venous caro. Uterus: Gravid, otherwise normal Cervix: Long and closed. Maternal Ovaries: Grossly normal. Maternal and other adnexa findings: Negative. Intrauterine gestations: One. presentation: Variable heart rate: 134 bpm Amniotic fluid index: 11.3 cm Largest amniotic fluid pocket: 3.8 cm Gestational Parameters: BPD: 4.21 cm 18 weeks/ 6 days, 28 %tile HC: 15.466 cm 18 weeks/ 3 days, 9 %tile AC: 13.27 cm 18 weeks/ 6 days, 28 %tile FL: 2.81 cm 18 weeks/ 5 days, 20 %tile Average ultrasound age (AUA): 18 weeks/5 days Estimated gestational age by KLARISSA: 19 weeks/2 days, estimated date of delivery 05/20/2019 Estimated weight (EFW): 252 grams EFW for KLARISSA: 16th percentile anatomic survey was not performed. IMPRESSION: 1. Single intrauterine gestation with average ultrasound age of 18 weeks 5 days, corresponding to established estimated gestational age of 19 weeks 2 days. heart rate is 134 BPM. Estimated weight is in the 16th %tile. 2. No apparent acute abnormality involving the maternal adnexa. 3. Normal uterine cervix, no placenta previa. The study was read by the radiologist. I viewed the images myself on the PACS system. ED Course/Re-evaluation Clinical Indication for ER IV: Hydration, IV Access ED Course Patient was admitted to an examination room. H&P was done. The differential diagnoses was considered. Patient with vomiting and diarrhea for 2 days. She does develop right lower quadrant abdominal pain. She is unable to lay on her right side. She was treated with IV fluids, Zofran and Tylenol orally. She declined any stronger pain medication. Clinical picture is not suspicious for appendicitis. She has no right lower quadrant tenderness, rebound or guarding. Her white blood cell counts in the normal range at 9.3. Ultrasound was per formed which shows intact with good heart tones. Patient feels better after medication and fluids. Her urinalysis was unremarkable. I see no indication for admission at this time. Patient advised to continue clear liquid diet for the next 48 hours and advance to the brat diet. She is discharged with prescription for Zofran. She is advised follow-up with her OB if not improved later this week. Decision to Disposition Date: Dec 27, 2018 Decision to Disposition Time: 00:24 Depart Departure Latest Vital Signs Vital Signs Date Time Temp Pulse Resp B/P (MAP) Pulse Ox O2 Delivery O2 Flow Rate FiO2 12/27/18 00:00 98/58 (71) 12/26/18 23:58 64 95 12/26/18 22:34 98.7 14 Room Air Impression: Primary Impression: Nausea vomiting and diarrhea Additional Impression: 20 weeks gestation of Condition: Improved Disposition: HOME OR SELF-CARE Referrals: LOUIS JEFFERY DO (PCP) New Scripts Ondansetron 4 Mg Odt (ONDANSETRON 4 MG ODT) 4 Mg Tab.rapdis 4 MG PO Q6H PRN for NAUSEA/VOMITING, #12 TAB Prov: PUJA BASSETT DO 12/27/18 Patient Instructions: Abdominal Pain (ED), Clear Liquid Diet (ED) Additional Instructions: Follow clear liquid diet for 24-48 hours, then advance to the the brat diet, bananas, rice, applesauce and toast Follow-up with PLASTICS TECHNICIAN next week as planned Problem Qualifiers PUJA BASSETT DO Dec 26, 2018 22:19
[2018-12-26] MEDS ORDERED: NS(*) 0.9% 1000 ML BAG 1,000 ML IV ONE (22:46)
[2018-12-26] MEDS ORDERED: ACETAMINOPHEN 325 MG TAB PO ONE (22:50)
[2018-12-26] MEDS ORDERED: ONDANSETRON 4 MG/2 ML VIAL IVP ONE (22:50)
[2018-12-26 23:06] LABS: PLATELET COUNT, AUTOMATED 209 K/uL (150-450)
[2018-12-27] VITALS: BP 98/58
--- NOTE | 2018-12-27 00:09 | RADIOLOGY IMAGING REPORT ---
FACILITY: [facility] PATIENT NAME: Lucia Mena : 1990 MR: [id number] V: [id number] EXAM DATE: [id number] ORDERING PHYSICIAN: PUJA BASSETT TECHNOLOGIST: Location: [facility] - [place] Patient: Lucia Mena : 1990 Visit/Account:[id number] Date of Sevice: 12/26/2018 EXAMINATION: Ultrasound transabdominal OB > 14 weeks HISTORY: , right lower quadrant pain with nausea and vomiting. COMPARISON: 12/09/2018 and previous. TECHNIQUE: Transabdominal imaging was performed for assessment of the fetus and maternal pelvic structures. T ransvaginal imaging was not performed. FINDINGS: Placenta: Posterior/fundal without previa. Redemonstration of probable placental venous caro. Uterus: Gravid, otherwise normal Cervix: Long and closed. Maternal Ovaries: Grossly normal. Maternal and other adnexa findings: Negative. Intrauterine gestations: One. presentation: Variable heart rate: 134 bpm Amniotic fluid index: 11.3 cm Largest amniotic fluid pocket: 3.8 cm Gestational Parameters: BPD: 4.21 cm 18 weeks/ 6 days, 28 %tile HC: 15.466 cm 18 weeks/ 3 days, 9 %tile AC: 13.27 cm 18 weeks/ 6 days, 28 %tile FL: 2.81 cm 18 weeks/ 5 days, 20 %tile Average ultrasound age (AUA): 18 weeks/5 days Estimated gestational age by KLARISSA: 19 weeks/2 days, estimated date of delivery 05/20/2019 Estimated weight (EFW): 252 grams EFW for KLARISSA: 16th percentile anatomic survey was not performed. IMPRESSION: 1. Single intrauterine gestation with average ultrasound age of 18 weeks 5 days, corresponding to es tablished estimated gestational age of 19 weeks 2 days. heart rate is 134 BPM. Estimated feta l weight is in the 16th %tile. 2. No apparent acute abnormality involving the maternal adnexa. 3. Normal uterine cervix, no placenta previa. Report Dictated By: Yfn Tavarez MD at 12/26/2018 11:58 PM Report E-Signed By: Yfn Tavarez MD at 12/27/2018 12:06 AM WSN:[id number]
[2018-12-27] MEDS ORDERED: ONDA4TAB9 PO (00:25)
[2018-12-27] MEDS ORDERED: ONDANSETRON 4 MG ODT TH SL ONE (00:25)
[2018-12-27] MEDS ORDERED: ACET/HYDROC 5/325MG TH ER ONLY 2 TAB/BOTTLE PO ONE (00:25)
[2019-01-02] MEDS ORDERED: [UNRECOGNIZED DRUG - CODE] IM (10:47)
[2019-01-02] MEDS ORDERED: HYDR275A SQ (10:57)
== END 2018-12-27 00:29 | disposition home or self-care (01) ==
LOC: ER 22:43
DX: O21.9 Vomiting of pregnancy, unspecified (principal); O26.892 Other specified pregnancy related conditions, second trimester; Z3A.20 20 weeks gestation of pregnancy
CPT/HCPCS: 76815; 81001; 82150; 83690; 85025; 96361; 96374; 99284; J2405; J7030; S0119; 82040; 82247; 82310; 82374; 82435; 82565; 82947; 84075; 84132; 84155; 84295; 84450; 84460; 84520

== ENCOUNTER → 2019-01-02 | Outpatient (CLI) | payer MEDICAID ==
[2018-01-31 04:25] VITALS: BMI 32.3
[~2019-01-02] MED LIST changes: +HYDR275A SQ; +[UNRECOGNIZED DRUG - CODE] IM
--- NOTE | 2019-01-02 13:34 | RADIOLOGY IMAGING REPORT ---
FACILITY: [facility] - [place] PATIENT NAME: Lucia Mena : 1990 MR: [id number] V: [id number] EXAM DATE: ORDERING PHYSICIAN: SHALINI VALLE TECHNOLOGIST: Location: [facility] - [place] Patient: Lucia Mena : 1990 Visit/Account:[id number] Date of Sevice: 01/02/2019 EXAMINATION: Ultrasound transabdominal OB > 14 weeks with anatomic evaluation HISTORY: 20 week anatomical survey COMPARISON: December 26, 2018 TECHNIQUE: Transabdominal imaging was performed for assessment of the fetus and maternal pelvic structures. T ransvaginal imaging was not performed. FINDINGS: Placenta: Posterior without previa. Uterus: Gravid, otherwise normal Cervix: Long and closed. Maternal Ovaries: Not visualized. Maternal and other adnexa findings: Not evaluated Intrauterine gestations: One. presentation: Variable. The fetus was in breech presentation at the start of the examination a nd it in vertex presentation. heart rate: Normal and regular at 152 bpm Amniotic fluid index: 16.98 cm Largest amniotic fluid pocket: 5.65 cm Gestational Parameters: BPD: 4.35 cm 19 weeks/ two days, 10% HC: 16.47 cm 19 weeks/ two days, 6% AC: 14.67 cm 20 weeks/ zero days, 33% FL: 2.93 cm 19 weeks/ one days, 8% Average ultrasound age (AUA): 19 weeks/three days, KLARISSA 05/26/2019 Estimated gestational age by KLARISSA: 20 weeks/two days, KLARISSA 05/20/2019 Estimated weight (EFW): 295 grams +/- 43 grams EFW for KLARISSA: 11 percentile Anatomic Survey: Intracranial structures, 4-chamber heart, stomach, kidneys, urinary bladder, spine, 3-vessel cord and cord insertion are unremarkable. Two upper and two lower extremities visualized. Cardiac ventricula r outflow tracts, palate and lips are unremarkable in appearance. IMPRESSION: Single viable fetus in variable presentation as described above. The estimated gestatio nal age by measurements is 19 weeks and three days. Estimated gestational age by LMP is 20 weeks and two days Estimated weight is 295 g which is equivalent to the 11th percentile Report Dictated By: Linda Hernandez MD at 01/02/2019 1:19 PM Report E-Signed By: Linda Hernandez MD at 01/02/2019 1:28 PM WSN:[id number]
== END ==
LOC: RAD 09:01
PROVIDERS: ATTEND Obstetrics & Gynecology
DX: Z02.9 Encounter for administrative examinations, unspecified (principal)

== ENCOUNTER → 2019-01-06 | Outpatient (CLI) | payer MEDICAID ==
[2018-01-31 04:25] VITALS: BMI 32.3
[~2019-01-06] MED LIST changes: +METR500T15 PO
== END ==
LOC: LAB 10:33
PROVIDERS: ATTEND Advanced Practice Midwife
DX: Z11.8 Encounter for screening for other infectious and parasitic diseases (principal); Z11.3 Encounter for screening for infections with a predominantly sexual mode of transmission; N89.8 Other specified noninflammatory disorders of vagina
CPT/HCPCS: 87210; 87491; 87591

== ENCOUNTER → 2019-02-07 | Outpatient (CLI) | payer MEDICAID ==
[2018-01-31 04:25] VITALS: BMI 32.3
[~2019-02-07] MED LIST changes: +HYDR30CR10 TP
== END ==
LOC: LAB 09:55
PROVIDERS: ATTEND Student in an Organized Health Care Education/Training Program
DX: Z02.9 Encounter for administrative examinations, unspecified (principal)

== ENCOUNTER → 2019-02-22 | Outpatient (CLI) | payer MEDICAID ==
[2018-01-31 04:25] VITALS: BMI 32.3
[~2019-02-22] MED LIST changes: +DIPH0.5S2 IM; -PROM12.556 PO; +PROM12.557 PO
[2019-02-22 11:05] LABS: PLATELET COUNT, AUTOMATED 217 K/uL (150-450)
== END ==
LOC: LAB 08:29
PROVIDERS: ATTEND Advanced Practice Midwife
DX: Z34.92 Encounter for supervision of normal pregnancy, unspecified, second trimester (principal)
CPT/HCPCS: 36415; 82950; 85025

== ENCOUNTER → 2019-03-20 | Outpatient (CLI) | payer MEDICAID ==
[2018-01-31 04:25] VITALS: BMI 32.3
[~2019-03-20] MED LIST changes: +METR-1 PO
== END ==
LOC: LAB 09:41
PROVIDERS: ATTEND Student in an Organized Health Care Education/Training Program
DX: N89.8 Other specified noninflammatory disorders of vagina (principal)
CPT/HCPCS: 87210

== ENCOUNTER 2019-03-26 11:43 | Outpatient (CLI) | payer MEDICAID ==
[~2019-03-26] VITALS: Ht 167.6 cm; Wt 90.7 kg
[2019-03-26 12:26] VITALS: BP 117/69; Ht 167.6 cm; Wt 90.7 kg
[2019-03-27] MEDS ORDERED: TRIA15CR40 TP (11:31)
[2019-03-30] MEDS ORDERED: FLUC150T40 PO (14:45)
[2019-03-30] MEDS ORDERED: ONDA4TAB9 PO (14:45)
== END 2019-03-26 13:42 | disposition home or self-care (01) ==
LOC: UNDOADMOB 11:43 → OB 11:43 → L&D 11:43 → OB 11:43 → L&D 13:42 → UNDODISOB 13:42 → EDSTATUS 03-27 14:23
PROVIDERS: ATTEND Obstetrics & Gynecology
DX: O26.893 Other specified pregnancy related conditions, third trimester (principal); Z3A.32 32 weeks gestation of pregnancy
CPT/HCPCS: 59025; 81001; 87491; 87591; G0463; 99213; G0378; G0379

== ENCOUNTER → 2019-04-27 | Outpatient (CLI) | payer MEDICAID ==
[2019-03-26 12:26] VITALS: BMI 32.3
[~2019-04-27] MED LIST changes: +AZIT-17 PO; +FLUC150T40 PO; +METH4TAB66 PO; +TRIA15CR40 TP
== END ==
LOC: LAB 09:49
PROVIDERS: ATTEND Obstetrics & Gynecology
DX: Z36.85 Encounter for antenatal screening for Streptococcus B (principal)
CPT/HCPCS: 87081

== ENCOUNTER → 2019-05-04 | Outpatient (CLI) | payer MEDICAID ==
[2019-03-26 12:26] VITALS: BMI 32.3
== END ==
LOC: LAB 09:52
PROVIDERS: ATTEND Student in an Organized Health Care Education/Training Program
DX: N89.8 Other specified noninflammatory disorders of vagina (principal)
CPT/HCPCS: 87210